=== PATIENT | female | born 1940 ===

== ENCOUNTER 2018-03-14 00:35 | Inpatient (IN) | payer MEDICARE, MEDICAID ==
[2018-03-14 00:40] VITALS: BMI 21.9
[2018-03-14] MEDS ORDERED: Iodixanol 320 MG/ML 100 ML BOTTLE IV ONE ×2 (00:46→01:16)
[2018-03-14] MEDS ORDERED: Sodium Chloride 0.9% 50 ML IV ONE ×2 (00:47→01:17)
[2018-03-14 00:53] LABS: BASO % 0.5 % (0.0-2.0); EOS # 0.2 K/uL (0.0-0.7); EOS % 1.8 % (0.0-4.0); HEMOGLOBIN 14.4 g/dL (12.0-16.0); LYMPH # 1.9 K/uL (1.0-4.3); LYMPH % 19.4 % (20.0-40.0); MEAN CELL VOLUME 94.1 fl (81.0-99.0); MEAN CORPUSCULAR HEMOGLOBIN 31.7 pg (27.0-31.0); MEAN CORPUSCULAR HGB CONC 33.7 g/dL (33.0-37.0); MEAN PLATELET VOLUME 8.8 fl (7.2-11.7); MONO # 0.6 K/uL (0.0-0.8); MONO % 6.1 % (0.0-10.0); NEUT % 72.2 % (50.0-75.0); NRBC % 0.1 % (0.0-0.0); RBC 4.55 Mil/uL (3.80-5.20); RED CELL DISTRIBUTION WIDTH 12.9 % (11.5-14.5); WHITE BLOOD COUNT 9.7 K/uL (4.8-10.8)
[2018-03-14 01:01] LABS: ALB/GLOB RATIO 1.2 (1.0-2.1); CALCIUM 9.6 mg/dL (8.4-10.2)
[2018-03-14 01:04] LABS: PARTIAL THROMBOPLASTIN TIME 30.9 Seconds (25.6-37.1); PROTHROMBIN TIME 10.8 Seconds (9.8-13.1)
[2018-03-14 01:15] LABS: TROPONIN I 0.019 ng/mL (0.00-0.120)
--- NOTE | 2018-03-14 01:19 | ED PDOC ---
HPI: Chest Pain Time Seen by Provider: 03/14/18 00:37 Chief Complaint (Nursing): Weakness/Neurological Deficit Chief Complaint (Provider): chest pain History Per: Patient History/Exam Limitations: no limitations Onset/Duration Of Symptoms: Hrs Current Symptoms Are (Timing): Still Present Additional Complaint(s): HX of carotid stenosis, Parkinson's presenting with chest pain, started at rest around 7PM and spontaneously resolved, occurred again at 1130PM and radiated to the L shoulder, son denies that she was complaining of shorthess of breath, back pain, but states she was breaking out into a sweat and he noticed a L sided facial droop that she once had previously. Patient denies numbness, weakness. Of note, patient has paralysis of her LE from Parkinsons. NIHSS Stroke Scale - Date/Time Evaluation Performed When Was NIHSS Performed: Baseline - How Severe is the Stroke Level of Consciousness: 0=Alert LOC to Questions: 0=Both comments correct LOC to commands: 0=Obeys both correctly Best Gaze: 0=Normal Visual: 0=No visual loss Facial: 1=Minor asymmetry Motor Arm - Left: 0=No drift Motor Arm - Right: 0=No drift Motor Leg - Left: 0=No drift Motor Leg - Right: 0=No drift Limb Ataxia: 0=Absent Sensory: 0=Normal Best Language: 0=No aphasia Dysarthia: 0=Normal articulation Extinction & Inattention (Neglect): 0=Normal, no object Score: 1 Past Medical History Reviewed: Historical Data, Nursing Documentation, Vital Signs Vital Signs: Last Vital Signs Temp 97.9 F 03/14/18 04:43 Pulse 81 03/14/18 04:43 Resp 18 03/14/18 04:43 BP 147/74 03/14/18 04:43 Pulse Ox 98 03/14/18 05:39 - Medical History PMH: Anxiety, Arthritis, HTN, Hypercholesterolemia, Parkinson's Disease Denies: Chronic Kidney Disease - Surgical History Surgical History: Carotid Endarterectomy - Family History Family History: States: Unknown Family Hx - Immunization History Hx Tetanus Toxoid Vaccination: (UTD) - Home Medications Home Medications: Ambulatory Orders Medication Instructions Recorded Carbidopa/Levodopa 25/100 CR 1 tab PO QID 09/13/16 [Sinemet CR] Losartan/Hydrochlorothiazide 1 tab PO DAILY 09/13/16 [Hyzaar 100-25 Tablet] Rotigotine [Neupro] 1 patch TD DAILY 09/13/16 amLODIPine [Norvasc] 2.5 mg PO BID 09/13/16 clonazePAM [Klonopin] 0.5 mg PO DAILY 09/13/16 Amantadine [Amantadine HCl] 100 mg PO DAILY 03/14/18 - Allergies Allergies/Adverse Reactions: Allergies Allergy/AdvReac Type Severity Reaction Status Date / Time Penicillins Allergy SWELLING Verified 07/20/16 15:55 Review of Systems ROS Statement: Except As Marked, All Systems Reviewed And Found Negative Cardiovascular: Positive for: Chest Pain Musculoskeletal: Positive for: Arm Pain Neurological: Negative for: Weakness, Numbness Physical Exam - Reviewed Nursing Documentation Reviewed: Yes Vital Signs Reviewed: Yes - Physical Exam Appears: Positive for: Well, Non-toxic, No Acute Distress Head Exam: Positive for: ATRAUMATIC, NORMAL INSPECTION, NORMOCEPHALIC Skin: Positive for: Normal Color, Warm, DRY Eye Exam: Positive for: EOMI, Normal appearance, PERRL ENT: Positive for: Normal ENT Inspection Neck: Positive for: Normal, Painless ROM Cardiovascular/Chest: Positive for: Regular Rate, Rhythm Respiratory: Positive for: CNT, Normal Breath Sounds Gastrointestinal/Abdominal: Positive for: Normal Exam, Soft Back: Positive for: Normal Inspection Extremity: Positive for: Normal ROM. 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 Negative for: Motor/Sensory Deficits (3/4 bilateral lower extremeties (chronic)), Gait, Aphasia - Laboratory Results Result Diagrams: 03/14/18 00:50 03/14/18 00:50 - ECG O2 Sat by Pulse Oximetry: 98 - Core Measure Core Measure Indicators: Code Stroke - Critical Care Total Time (In Min): 60 Documented Critical Care: Time excludes all time spent performint seperately billable procedures Medical Decision Making Medical Decision MakinAM A/P: Hx of carotid stenosis and Alzheimer's presenting with chest pain, L arm pain, and possible facial droop -patient was immediately taken to CT scanner due to possibility of CVA and EMS reporting of numbness, however patient denied this later -initially patient had tachy-dysrhythmia but resolved spontaneously 130AM -patient now has no complaints, L facial droop has improved from prior, but possible that it is also patient's baseline -no other focal deficits at this time -passed swallow eval, will give ASA pending normal CT/CTA's 330AM -patient well appearing, pleasant, smiling, calm, states no pain, no complaints -CT's negative other than carotid stenosis which is already known -will place in telemetry for continous cardiac monitoring, serial troponins, and mri -likely facial droop is secondary to parkinsonian facies and not true stroke symptom Disposition - Clinical Impression Clinical Impression: Facial droop, Chest pain - Disposition Disposition Time: 01:30 Condition: STABLE
[2018-03-14] MEDS: Sodium Chloride 0.9% 1,000 ML IV SCH ×2 (01:45→17:31)
--- NOTE | 2018-03-14 03:33 | CT ---
EXAM: CT Angiography Head With Intravenous Contrast CLINICAL HISTORY: 77 years old, female; Signs and symptoms; Numbness; Additional info: L sided numbness TECHNIQUE: Axial computed tomographic angiography images of the head with intravenous contrast using CT angiography protocol. All CT scans at this facility use one or more dose reduction techniques, viz.: automated exposure control; ma/kV adjustment per patient size (including targeted exams where dose is matched to indication; i.e. head); or iterative reconstruction technique. MIP reconstructed images were created and reviewed. Coronal and sagittal reformatted images were created and reviewed. CONTRAST: 100 mL of visipaque 320 administered intravenously. COMPARISON: No relevant prior studies available. FINDINGS: The basilar artery is patent. The posterior cerebral arteries are patent. Calcifications within the cavernous internal carotid arteries are noted. No significant stenosis or occlusion of the intracranial internal carotid arteries. The anterior and middle cerebral arteries are patent. No significant fluid within the sinuses or mastoid air cells. IMPRESSION: No vascular occlusion or aneurysm. EXAM: CT Angiography Neck With Intravenous Contrast EXAM DATE/TIME: 03/14/2018 12:55 AM CLINICAL HISTORY: 77 years old, female; Signs and symptoms; Numbness; Additional info: L sided numbness TECHNIQUE: Axial computed tomographic angiography images of the neck with intravenous contrast using CT angiography protocol. All CT scans at this facility use one or more dose reduction techniques, viz.: automated exposure control; ma/kV adjustment per patient size (including targeted exams where dose is matched to indication; i.e. head); or iterative reconstruction technique. MIP reconstructed images were created and reviewed. Coronal and sagittal reformatted images were created and reviewed. CONTRAST: 100 mL of visipaque 320 administered intravenously. COMPARISON: CTA HEAD/NECK CODE STROKE 2018-03-14 00:43 FINDINGS: There are atherosclerotic calcifications within the aorta and at the origins of the great vessels. There is dense calcification of the origin of the left vertebral artery. The left vertebral artery is patent distal to the bulky calcification.The left vertebral artery terminates in the left posterior inferior cerebral artery, a normal variant. The right vertebral artery is dominant. The basilar artery is patent Calcifications are present within the proximal-mid common carotid arteries bilaterally without significant stenosis or occlusion. Dense calcification is present at the bifurcation of the right common carotid artery and extending into the proximal right internal carotid artery where it results in moderate-severe stenosis. The right internal carotid artery is well-perfused distal to this region. The left internal carotid artery is patent without significant stenosis or occlusion. Degenerative changes are present with osteophyte formation and articular facet joint hypertrophy. Minimal 2 mm anterior listhesis C4 with respect C5 felt to be chronic. Punctate areas of low attenuation within the thyroid gland. Recommend correlation with laboratory values. IMPRESSION: Bulky atherosclerotic calcifications at the right common carotid artery bifurcation extending into the origin of the internal carotid artery resulting in a focal area of moderate - severe stenosis with good perfusion distally.
[2018-03-14 07:28] LABS: HEMOGLOBIN 13.9 g/dL (12.0-16.0); MEAN CELL VOLUME 93.1 fl (81.0-99.0); MEAN CORPUSCULAR HEMOGLOBIN 31.7 pg (27.0-31.0); MEAN CORPUSCULAR HGB CONC 34.1 g/dL (33.0-37.0); RBC 4.39 Mil/uL (3.80-5.20); WHITE BLOOD COUNT 8.6 K/uL (4.8-10.8)
[2018-03-14 07:44] LABS: ALB/GLOB RATIO 1.2 (1.0-2.1); ALBUMIN 3.9 g/dL (3.5-5.0); ALT/SGPT 15 U/L (9-52); AST/SGOT 22 U/L (14-36); BLOOD UREA NITROGEN 18 mg/dl (7-17); CALCIUM 9.3 mg/dL (8.4-10.2); GFR AFRICAN-AMERICAN > 60; GFR NON-AFRICAN AMERICAN > 60
--- NOTE | 2018-03-14 08:40 | CT ---
PROCEDURE: CT HEAD WITHOUT CONTRAST. HISTORY: code stroke COMPARISON: Comparison is made with the previous study dated 09/13/2016 TECHNIQUE: Axial computed tomography images were obtained through the head/brain without intravenous contrast. Radiation dose: Total exam DLP = 763.89 mGy-cm. This CT exam was performed using one or more of the following dose reduction techniques: Automated exposure control, adjustment of the mA and/or kV according to patient size, and/or use of iterative reconstruction technique. FINDINGS: HEMORRHAGE: No intracranial hemorrhage. BRAIN: No mass effect or edema. Mild volume loss and mild chronic microvascular white matter ischemic changes are again noted. VENTRICLES: Unremarkable. No hydrocephalus. CALVARIUM: Unremarkable. PARANASAL SINUSES: Unremarkable as visualized. No significant inflammatory changes. MASTOID AIR CELLS: Unremarkable as visualized. No inflammatory changes. OTHER FINDINGS: None. IMPRESSION: No evidence of acute intracranial hemorrhage territorial infarct mass effect or midline shift. Mild volume loss and chronic microvascular ischemic disease again noted.
[2018-03-14] MEDS: Carbidopa/Levodopa 25/100 CR PO SCH ×4 (08:42→21:16)
--- NOTE | 2018-03-14 09:56 | MRI ---
PROCEDURE: MRI BRAIN WITHOUT CONTRAST HISTORY: R/O CVA COMPARISON: Comparison is made with the previous CTA dated 03/14/2018 TECHNIQUE: Multiplanar, multisequence MR images of the brain were obtained without intravenous contrast enhancement. FINDINGS: HEMORRHAGE: None DWI: No evidence of an acute or early subacute infarction. BRAIN PARENCHYMA: No mass effect or edema. Gzqy-ds-aqjfqgbl atrophy is noted. Nekl-yu-ktqwjpcz white matter changes are also noted VENTRICLES: Unremarkable. No hydrocephalus. CRANIUM: Unremarkable. ORBITS: Grossly unremarkable. PARANASAL SINUSES/MASTOIDS: Clear VASCULAR SYSTEM: Skull base flow voids intact. OTHER FINDINGS: None. IMPRESSION: No evidence of acute or subacute infarction. No evidence of intracranial hemorrhage mass effect or midline shift. Esbx-cy-nglbcurd atrophy and chronic microvascular white matter ischemic disease.
--- NOTE | 2018-03-14 11:10 | CARD ---
APPROVED REPORT EXAM: Two-dimensional and M-mode echocardiogram with Doppler and color Doppler. Other Information Quality : GoodRhythm : NSR INDICATION Chest Pain 2D DIMENSIONS IVSd0.88 (0.7-1.1cm)LVDd3.91 (3.9-5.9cm) LVOT Diameter1.39 (1.8-2.4cm)PWd0.84 (0.7-1.1cm) IVSs1.28 (0.8-1.2cm)LVDs2.11 (2.5-4.0cm) FS (%) 46.1 %PWs0.94 (0.8-1.2cm) M-Mode DIMENSIONS Left Atrium (MM)4.00 (2.5-4.0cm)IVSd1.38 (0.7-1.1cm) Aortic Root2.62 (2.2-3.7cm)LVDd2.98 (4.0-5.6cm) Aortic Cusp Exc.1.63 (1.5-2.0cm)PWd1.24 (0.7-1.1cm) IVSs1.52 cmFS (%) 46 % LVDs1.60 (2.0-3.8cm)PWs1.68 cm Mitral Valve MV E Twyowlnt85.6cm/sMV DECEL [id number] A Zvgbxpjb73.0cm/s MV ZYF83fbL/A ratio0.8MVA (PHT)3.36cm2 TDI Lateral E' Peak V5.87cm/sMedial E' Peak V7.01cm/sE/Lateral E'12.7 E/Medial E'10.6 Pulmonary Valve PV Peak Blzzstus147.5cm/s Tricuspid Valve TR Peak [id number]/sRAP [id number] Peak Gr.25mmHg [id number] LEFT VENTRICLE The left ventricle is normal in size. There is normal left ventricular wall thickness. The left ventricular function is normal. The left ventricular ejection fraction is - 75%. There is normal LV segmental wall motion. Transmitral Doppler flow pattern is Grade I-abnormal relaxation pattern. No left ventricle thrombus noted on this study. There is no ventricular septal defect visualized. There is no left ventricular aneurysm. There is no mass noted in the left ventricle. RIGHT VENTRICLE The right ventricle is normal size. There is normal right ventricular wall thickness. The right ventricular systolic function is normal. ATRIA The left atrium is mildly dilated on the 2D study. There is no thrombus suspected in the left atrium. The right atrium size is normal. The interatrial septum is intact with no evidence for an atrial septal defect. AORTIC VALVE The aortic valve is normal in structure. No aortic regurgitation is present. There is no aortic valvular stenosis. There is no aortic valvular vegetation. MITRAL VALVE The mitral valve is normal in structure. There is no evidence of mitral valve prolapse. There is no mitral valve stenosis. Mitral regurgitation is trace. TRICUSPID VALVE The tricuspid valve is normal in structure. There is mild tricuspid regurgitation. Right ventricular systolic pressure is estimated at 34 mmHg. There is no tricuspid valve prolapse or vegetation. There is no tricuspid valve stenosis. PULMONIC VALVE The pulmonary valve is normal in structure. There is no pulmonic valvular regurgitation. GREAT VESSELS The aortic root is normal in size. The IVC is normal in size and collapses >50% with inspiration. PERICARDIAL EFFUSION The pericardium appears normal. There is no pleural effusion. <Conclusion> The left ventricle is normal in size and wall thickness. The left ventricular function is normal. The left ventricular ejection fraction is - 75%. The left atrium is mildly dilated on the 2D study. The mitral, aortic and tricuspid valves are normal. There is trace mitral regurgitation and mild tricuspid regurgitation.
--- NOTE | 2018-03-14 11:10 | CP.PCM.HP ---
History of Present Illness - History of Present Illness History of Present Illness: pt admitted for left facial droop and cp. all bw and imaging noted. atherosclerosis noted. pos trop noted. no cp at present. no neuromuscular weakness. + facial droop noted on exam. speech wnl for this pt. Present on Admission - Present on Admission Any Indicators Present on Admission: No Review of Systems - Cardiovascular Cardiovascular: As Per HPI, Chest Pain - Neurological Neurological: As Per HPI, Weakness Past Patient History - Past Medical History & Family History Past Medical History?: Yes - Past Social History Smoking Status: Never Smoked - CARDIAC Hx Hypercholesterolemia: Yes Hx Hypertension: Yes - PULMONARY Hx Respiratory Disorders: No - NEUROLOGICAL Hx Parkinson's Disease: Yes - HEENT Hx HEENT Problems: No - RENAL Hx Chronic Kidney Disease: No - ENDOCRINE/METABOLIC Hx Endocrine Disorders: No - HEMATOLOGICAL/ONCOLOGICAL Hx Blood Disorders: No - INTEGUMENTARY Hx Dermatological Problems: No - MUSCULOSKELETAL/RHEUMATOLOGICAL Hx Arthritis: Yes - GASTROINTESTINAL Hx Gastrointestinal Disorders: No - GENITOURINARY/GYNECOLOGICAL Hx Genitourinary Disorders: No - PSYCHIATRIC Hx Anxiety: Yes - SURGICAL HISTORY Hx Carotid Endarterectomy: Yes - ANESTHESIA Hx Anesthesia: Yes Hx Anesthesia Reactions: No Hx Malignant Hyperthermia: No Meds Allergies/Adverse Reactions: Allergies Allergy/AdvReac Type Severity Reaction Status Date / Time Penicillins Allergy SWELLING Verified 07/20/16 15:55 Physical Exam - Constitutional Appears: Well, Non-toxic, No Acute Distress, Chronically Ill - Head Exam Head Exam: ATRAUMATIC, NORMAL INSPECTION, NORMOCEPHALIC - Eye Exam Eye Exam: EOMI, Normal appearance, PERRL Pupil Exam: NORMAL ACCOMODATION, PERRL - ENT Exam ENT Exam: Mucous Membranes Moist, Normal Exam - Neck Exam Neck exam: Positive for: Normal Inspection - Respiratory Exam Respiratory Exam: Clear to Auscultation Bilateral, NORMAL BREATHING PATTERN - Cardiovascular Exam Cardiovascular Exam: REGULAR RHYTHM, RRR, +S1, +S2 - GI/Abdominal Exam GI & Abdominal Exam: Normal Bowel Sounds, Soft. absent: Tenderness - Extremities Exam Extremities exam: Positive for: full ROM, normal capillary refill, normal inspection, pedal pulses present - Back Exam Back exam: NORMAL INSPECTION - Neurological Exam Neurological exam: Abnormal Gait, Alert, CN II-XII Intact, Oriented x3, Reflexes Normal - Psychiatric Exam Psychiatric exam: Normal Affect, Normal Mood - Skin Skin Exam: Dry, Intact, Normal Color, Warm Results - Vital Signs Recent Vital Signs: Last Vital Signs Temp 97.3 F L 03/14/18 08:02 Pulse 78 03/14/18 08:41 Resp 18 03/14/18 08:02 BP 147/77 03/14/18 08:41 Pulse Ox 100 03/14/18 08:02 - Labs Result Diagrams: 03/14/18 06:04 03/14/18 06:04 Labs: Laboratory Results - last 24 hr 03/14/18 03/14/18 03/14/18 00:42 00:50 00:50 WBC 9.7 RBC 4.55 Hgb 14.4 Hct 42.8 MCV 94.1 MCH 31.7 H MCHC 33.7 RDW 12.9 Plt Count 224 MPV 8.8 Neut % (Auto) 72.2 Lymph % (Auto) 19.4 L Crisp % (Auto) 6.1 Eos % (Auto) 1.8 Baso % (Auto) 0.5 Neut # (Auto) 7.0 Lymph # (Auto) 1.9 Crisp # (Auto) 0.6 Eos # (Auto) 0.2 Baso # (Auto) 0.0 PT INR APTT Sodium 141 Potassium 3.9 Chloride 105 Carbon Dioxide 21 L Anion Gap 19 BUN 21 H Creatinine 1.1 Est GFR ( Amer) 59 Est GFR (Non-Af Amer) 48 Random Glucose 177 H Calcium 9.6 Total Bilirubin 0.6 AST 18 ALT 16 Alkaline Phosphatase 95 Troponin I 0.0190 Total Protein 7.3 Albumin 4.0 Globulin 3.3 Albumin/Globulin Ratio 1.2 Triglycerides 139 Cholesterol 204 H LDL Cholesterol Direct 126 HDL Cholesterol 47 Blood Type A POSITIVE Antibody Screen Negative BBK History Checked Patient has bt 03/14/18 03/14/18 03/14/18 00:50 06:04 06:04 WBC 8.6 RBC 4.39 Hgb 13.9 Hct 40.9 MCV 93.1 MCH 31.7 H MCHC 34.1 RDW 13.0 Plt Count 197 MPV Neut % (Auto) Lymph % (Auto) Crisp % (Auto) Eos % (Auto) Baso % (Auto) Neut # (Auto) Lymph # (Auto) Crisp # (Auto) Eos # (Auto) Baso # (Auto) PT 10.8 INR 1.0 APTT 30.9 Sodium 144 Potassium 4.3 Chloride 108 H Carbon Dioxide 24 Anion Gap 16 BUN 18 H Creatinine 0.7 Est GFR ( Amer) > 60 Est GFR (Non-Af Amer) > 60 Random Glucose 103 Calcium 9.3 Total Bilirubin 0.5 AST 22 ALT 15 Alkaline Phosphatase 89 Troponin I 0.2820 H* Total Protein 7.2 Albumin 3.9 Globulin 3.3 Albumin/Globulin Ratio 1.2 Triglycerides Cholesterol LDL Cholesterol Direct HDL Cholesterol Blood Type Antibody Screen BBK History Checked Assessment & Plan (1) DVT prophylaxis Assessment and Plan: scd and ae hose asa. hold anticoag until intervention r/o Status: Acute (2) Chest pain Assessment and Plan: trops, asa echo Status: Acute (3) Facial droop Assessment and Plan: ct head/cta head/neck noted. mri brain noted carotid dopplar pending neuro consult-case d/c w/ dr hernández. recommends bp 160-170 (dr gallegos aware of same as pt also appears to have acs process) asa ordered. will follow w/ dr hernández for possible intervention Status: Acute Decision To Admit - Pt Status Changed To: Hospital Disposition Of: Inpatient - Admit Certification Admit to Inpatient:: After my assessment, the patient will require hospitalization for at least two midnights. This is because of the severity of symptoms shown, intensity of services needed, and/or the medical risk in this patient being treated as an outpatient. - . Bed Request Type: Telemetry Admitting Physician: Yumiko Joseph
--- NOTE | 2018-03-14 11:30 | CP.PCM.CON ---
History of Present Illness - History of Present Illness History of Present Illness: I was asked to evaluate patient by Dr Razo and Dr Joseph Patient is a 77 year old female with PMH HTN, DM, Parkinson's carotid stenosis who presents with chest pain. The patient developed intermittent chest pressure while at rest, and radiation to the left arm. She was dyspneic at rest. The son also notes a facial droop. consultation was requested. Of note patient had a short run of SVT last night Review of Systems - Constitutional Constitutional: absent: As Per HPI, Anorexia, Chills, Daytime Sleepiness, Excessive Sweating, Fatigue, Fever, Frequent Falls, Headache, Increased Appetite , Lethargy, Malaise, Night Sweats, Snoring, Sleep Apnea, Weight Gain, Weight Loss, Weakness, Other - EENT Ears: absent: As Per HPI, Decreased Hearing, Ear Discharge, Ear Pain, Tinnitus, Abnormal Hearing, Disequilibrium, Dizziness, Other Nose/Mouth/Throat: absent: As Per HPI, Epistaxis, Nasal Congestion, Nasal Discharge, Nasal Obstruction, Nasal Trauma, Nose Pain, Post Nasal Drip, Sinus Pain, Sinus Pressure, Bleeding Gums, Change in Voice, Dental Pain, Dry Mouth, Dysphagia, Halitosis, Hoarsness, Lip Swelling, Mouth Lesions, Mouth Pain, Odynophagia, Sore Throat, Throat Swelling, Tongue Swelling, Facial Pain, Neck Pain, Neck Mass, Other - Cardiovascular Cardiovascular: Chest Pain - Respiratory Respiratory: absent: As Per HPI, Cough, Dyspnea, Hemoptysis, Dyspnea on Exertion , Wheezing, Snoring, Stridor, Pain on Inspiration, Chest Congestion, Excessive Mucous Production, Change in Mucous Color, Pain with Coughing, Other - Gastrointestinal Gastrointestinal: absent: As Per HPI, Abdominal Pain, Belching, Bloating, Change in Bowel Habits, Change in Stool Character, Coffee Ground Emesis, Constipation, Cramping, Diarrhea, Dyspepsia, Dysphagia, Early Satiety, Excessive Flatus, Fecal Incontinence, Heartburn, Hematemesis, Hematochezia, Loose Stools, Melena, Nausea, Odynophagia, Temesmus, Vomiting, Other - Genitourinary Genitourinary: absent: As Per HPI, Change in Urinary Stream, Difficulty Urinating, Dysuria, Flank Pain, Hematuria, Pyuria, Nocturia, Urinary Incontinence, Urinary Frequency, Urinary Hesitance, Urinary Urgency, Voiding Freq/Small Amts, Freq UTI, Hx Renal/Bladder Calculi, Hx /Renal Surgery, Bladder Distension, Other - Musculoskeletal Musculoskeletal: absent: As Per HPI, Abnormal Gait, Arthralgias, Atrophy, Back Pain, Deformity, Joint Swelling, Limited Range of Motion, Loss of Height, Muscle Cramps, Muscle Weakness, Myalgias, Neck Pain, Numbness, Radiating Pain into Limb, Stiffness, Tingling, Other - Integumentary Integumentary: absent: As Per HPI, Acne, Alopecia, Bleeding Lesions, Change in Hair, Change in Nails, Change in Pigmentation, Changing Lesions, Dry Skin, Erythema, Furuncle, Hirsutism, Lesions, New Lesions, Non-Healing Lesions, Photosensitivity, Pruritus, Rash, Skin Pain, Skin Ulcer, Sores, Striae, Swelling , Unusual Bruising, Wounds, Jaundice, Other - Neurological Neurological: Focal Weakness - Psychiatric Psychiatric: absent: As Per HPI, Abnormal Sleep Pattern, Anhedonia, Anxiety, Auditory Hallucinations, Behavioral Changes, Change in Appetite, Change in Libido, Confusion, Depression, Difficulty Concentrating, Hallucinations, Homicidal Ideation, Hopelessness, Irritability, Memory Loss, Mood Swings, Panic Attacks, Paranoia, Suicidal Ideation, Visual Hallucinations, Tactile Hallucinations, Other - Endocrine Endocrine: absent: As Per HPI, Change in Body Appearance, Change in Libido, Cold Intolorance, Deepening of Voice, Excessive Sweating, Fatigue, Flushing, Heat Intolorance, Increase in Ring/Shoe/Hat Size, Palpitations, Polydipsia, Polyphagia, Polyuria, Other - Hematologic/Lymphatic Hematologic: absent: As Per HPI, Easy Bleeding, Easy Bruising, Lymphadenopathy, Other Past Patient History - Past Medical History & Family History Past Medical History?: Yes - Past Social History Smoking Status: Never Smoked - CARDIAC Hx Hypercholesterolemia: Yes Hx Hypertension: Yes - PULMONARY Hx Respiratory Disorders: No - NEUROLOGICAL Hx Parkinson's Disease: Yes - HEENT Hx HEENT Problems: No - RENAL Hx Chronic Kidney Disease: No - ENDOCRINE/METABOLIC Hx Endocrine Disorders: No - HEMATOLOGICAL/ONCOLOGICAL Hx Blood Disorders: No - INTEGUMENTARY Hx Dermatological Problems: No - MUSCULOSKELETAL/RHEUMATOLOGICAL Hx Arthritis: Yes - GASTROINTESTINAL Hx Gastrointestinal Disorders: No - GENITOURINARY/GYNECOLOGICAL Hx Genitourinary Disorders: No - PSYCHIATRIC Hx Anxiety: Yes - SURGICAL HISTORY Hx Carotid Endarterectomy: Yes - ANESTHESIA Hx Anesthesia: Yes Hx Anesthesia Reactions: No Hx Malignant Hyperthermia: No Meds Allergies/Adverse Reactions: Allergies Allergy/AdvReac Type Severity Reaction Status Date / Time Penicillins Allergy SWELLING Verified 07/20/16 15:55 - Medications Medications: Current Medications Amantadine HCl (Amantadine 100 Mg Cap) 100 mg PO DAILY [facility] Last Admin: 03/14/18 08:40 Dose: 100 mg Amlodipine Besylate (Norvasc) 2.5 mg PO BID [facility] Last Admin: 03/14/18 08:41 Dose: 2.5 mg Aspirin (Ecotrin) 81 mg PO DAILY [facility] Last Admin: 03/14/18 08:44 Dose: 81 mg Carbidopa/Levodopa (Sinemet Cr) 1 tab PO QID [facility] Last Admin: 03/14/18 08:42 Dose: 1 tab Clonazepam (Klonopin) 0.5 mg PO DAILY [facility] Last Admin: 03/14/18 08:44 Dose: 0.5 mg Home Med (Rotigotine [Neupro]) 1 patch TD DAILY [facility] Hydrochlorothiazide (Hydrodiuril) 25 mg PO DAILY [facility] Last Admin: 03/14/18 08:41 Dose: 25 mg Sodium Chloride (Sodium Chloride 0.9%) 1,000 mls @ 100 mls/hr IV .Q10H [facility] Last Admin: 03/14/18 01:45 Dose: 100 mls/hr Losartan Potassium (Cozaar) 100 mg PO DAILY [facility] Last Admin: 03/14/18 08:40 Dose: 100 mg Physical Exam - Constitutional Appears: Non-toxic - Head Exam Head Exam: NORMAL INSPECTION - Eye Exam Eye Exam: Normal appearance - ENT Exam ENT Exam: Mucous Membranes Moist - Neck Exam Neck exam: Positive for: Full Rom - Respiratory Exam Respiratory Exam: Decreased Breath Sounds - Cardiovascular Exam Cardiovascular Exam: REGULAR RHYTHM - GI/Abdominal Exam GI & Abdominal Exam: Normal Bowel Sounds - Rectal Exam Rectal Exam: Deferred - Extremities Exam Extremities exam: Positive for: pedal edema - Back Exam Back exam: NORMAL INSPECTION - Neurological Exam Neurological exam: Alert - Psychiatric Exam Psychiatric exam: Normal Affect - Skin Skin Exam: Normal Color Results - Vital Signs Recent Vital Signs: Last Vital Signs Temp 97.3 F L 03/14/18 08:02 Pulse 78 03/14/18 09:00 Resp 18 06/02/18 08:02 BP 147/77 03/14/18 08:41 Pulse Ox 100 03/14/18 08:02 - Labs Result Diagrams: 03/14/18 06:04 03/14/18 06:04 Labs: Laboratory Results - last 24 hr 03/14/18 03/14/18 03/14/18 00:42 00:50 00:50 WBC 9.7 RBC 4.55 Hgb 14.4 Hct 42.8 MCV 94.1 MCH 31.7 H MCHC 33.7 RDW 12.9 Plt Count 224 MPV 8.8 Neut % (Auto) 72.2 Lymph % (Auto) 19.4 L Anson % (Auto) 6.1 Eos % (Auto) 1.8 Baso % (Auto) 0.5 Neut # (Auto) 7.0 Lymph # (Auto) 1.9 Anson # (Auto) 0.6 Eos # (Auto) 0.2 Baso # (Auto) 0.0 PT INR APTT Sodium 141 Potassium 3.9 Chloride 105 Carbon Dioxide 21 L Anion Gap 19 BUN 21 H Creatinine 1.1 Est GFR ( Amer) 59 Est GFR (Non-Af Amer) 48 Random Glucose 177 H Calcium 9.6 Total Bilirubin 0.6 AST 18 ALT 16 Alkaline Phosphatase 95 Troponin I 0.0190 Total Protein 7.3 Albumin 4.0 Globulin 3.3 Albumin/Globulin Ratio 1.2 Triglycerides 139 Cholesterol 204 H LDL Cholesterol Direct 126 HDL Cholesterol 47 Blood Type A POSITIVE Antibody Screen Negative BBK History Checked Patient has bt 03/14/18 03/14/18 03/14/18 00:50 06:04 06:04 WBC 8.6 RBC 4.39 Hgb 13.9 Hct 40.9 MCV 93.1 MCH 31.7 H MCHC 34.1 RDW 13.0 Plt Count 197 MPV Neut % (Auto) Lymph % (Auto) Anson % (Auto) Eos % (Auto) Baso % (Auto) Neut # (Auto) Lymph # (Auto) Anson # (Auto) Eos # (Auto) Baso # (Auto) PT 10.8 INR 1.0 APTT 30.9 Sodium 144 Potassium 4.3 Chloride 108 H Carbon Dioxide 24 Anion Gap 16 BUN 18 H Creatinine 0.7 Est GFR ( Amer) > 60 Est GFR (Non-Af Amer) > 60 Random Glucose 103 Calcium 9.3 Total Bilirubin 0.5 AST 22 ALT 15 Alkaline Phosphatase 89 Troponin I 0.2820 H* Total Protein 7.2 Albumin 3.9 Globulin 3.3 Albumin/Globulin Ratio 1.2 Triglycerides Cholesterol LDL Cholesterol Direct HDL Cholesterol Blood Type Antibody Screen BBK History Checked - EKG Data EKG Interpreted by: Myself EKG shows normal: Sinus rhythm Assessment & Plan (1) SVT (supraventricular tachycardia) Assessment and Plan: recommend betablocker therapy Status: Acute (2) NSTEMI (non-ST elevated myocardial infarction) Assessment and Plan: likely due to ubnderlying CAD. recommend echocardiogram to assess LV function. recommend addition of Plavix. would anticoagulate if cleared by neuro Status: Acute (3) Chest pain Status: Acute
[2018-03-14] MEDS: ROTIGOTINE TD SCH (13:31)
--- NOTE | 2018-03-14 16:40 | CARD ---
APPROVED REPORT EKG Measurement Heart [id number] <Conclusion> Normal sinus rhythm Left ventricular hypertrophy with QRS widening and repolarization abnormality Cannot rule out Septal infarct, age undetermined Abnormal ECG
--- NOTE | 2018-03-14 16:46 | RAD ---
HISTORY: Code Stroke COMPARISON: Comparison is made with 09/13/2016 FINDINGS: LUNGS: No active pulmonary disease. PLEURA: No significant pleural effusion identified, no pneumothorax apparent. CARDIOVASCULAR: Normal. OSSEOUS STRUCTURES: No significant abnormalities. VISUALIZED UPPER ABDOMEN: Normal. OTHER FINDINGS: None. IMPRESSION: No active disease.
--- NOTE | 2018-03-14 17:14 | US ---
PROCEDURE: Duplex ultrasound of the carotid and vertebral arteries. HISTORY: R/O CVA COMPARISON: Comparison is made with the previous CTA dated 03/14/2028 TECHNIQUE: Grayscale and duplex Doppler evaluation of the cervical carotid and vertebral arteries were performed. The common carotid, carotid bifurcations and cervical ICA and proximal ECA were evaluated. The vertebral arteries were evaluated for gross patency and direction. FINDINGS: RIGHT CAROTID ARTERIES: Common Carotid Artery: Calcified plaques noted Maximal flow velocity of 55.2 cm/s. Carotid Bifurcation: Large calcified plaques. Internal Carotid Artery:Foci of calcified and noncalcified plaques noted. Maximal flow velocity of 120 cm/s. External Carotid Artery (proximal branches): Normal. Maximal flow velocity of 118.7 cm/s. ICA/CCA Ratio: 2.4 LEFT CAROTID ARTERIES: Common Carotid Artery: Calcified plaques noted. Maximal flow velocity of 80 cm/s. Carotid Bifurcation: Large calcified plaques noted. Internal Carotid Artery:Mural thickening and foci of calcified and noncalcified plaques. Maximal flow velocity of 70.7 cm/s. External Carotid Artery (proximal branches): Normal Maximal flow velocity of 115.5 cm/s. ICA/CCA Ratio: 0.9 VERTEBRAL ARTERIES: Right Vertebral Artery: Patent. Antegrade flow. Left Vertebral Artery: Patent. Antegrade flow. OTHER FINDINGS: None. IMPRESSION: Mild increased peak systolic velocity at the proximal right internal carotid artery and carotid bifurcation suggestive of mild approximately 50 percent stenosis. Moderate atherosclerotic disease noted bilaterally.
[2018-03-15 06:04] LABS: BASO % 0.7 % (0.0-2.0); EOS # 0.1 K/uL (0.0-0.7); HEMOGLOBIN 14.5 g/dL (12.0-16.0); LYMPH % 29.4 % (20.0-40.0); MEAN CELL VOLUME 94.2 fl (81.0-99.0); MEAN CORPUSCULAR HEMOGLOBIN 31.6 pg (27.0-31.0); MEAN CORPUSCULAR HGB CONC 33.5 g/dL (33.0-37.0); MEAN PLATELET VOLUME 9.1 fl (7.2-11.7); MONO # 0.5 K/uL (0.0-0.8); MONO % 7.3 % (0.0-10.0); NEUT # 4.1 K/uL (1.8-7.0); NEUT % 60.6 % (50.0-75.0); RBC 4.58 Mil/uL (3.80-5.20); RED CELL DISTRIBUTION WIDTH 12.9 % (11.5-14.5); WHITE BLOOD COUNT 6.7 K/uL (4.8-10.8)
[2018-03-15 06:10] LABS: ALB/GLOB RATIO 1.2 (1.0-2.1); ALBUMIN 3.9 g/dL (3.5-5.0); ALT/SGPT 18 U/L (9-52); AST/SGOT 22 U/L (14-36); BLOOD UREA NITROGEN 13 mg/dl (7-17); CALCIUM 9.1 mg/dL (8.4-10.2); GFR AFRICAN-AMERICAN > 60; GFR NON-AFRICAN AMERICAN > 60; HDL CHOLESTEROL 47 MG/DL (30-70)
[2018-03-15 06:14] LABS: LDL CHOLESTEROL 120 mg/dL (0-129)
[2018-03-15] MEDS: Carbidopa/Levodopa 25/100 CR PO SCH ×4 (08:23→21:00)
[2018-03-15] MEDS: ROTIGOTINE TD SCH (09:42)
--- NOTE | 2018-03-15 11:44 | CP.PCM.PN ---
Subjective - Date & Time of Evaluation Date of Evaluation: 03/15/18 Time of Evaluation: 11:44 - Subjective Subjective: pt comfortable in bed, no f/c, n/v/d. no cp, dyspnea. left facial droop remains all imaging and consult notes reviewed. 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 trops noted and case d/c w/ dr gallegos. pt for cath likely tomorrow. Objective - Vital Signs/Intake and Output Vital Signs (last 24 hours): Temp Pulse Resp BP Pulse Ox 97.6 F 86 20 161/75 H 100 03/15/18 08:27 03/15/18 09:00 03/15/18 08:27 03/15/18 08:27 03/15/18 08:27 - Medications Medications: Current Medications Amantadine HCl (Amantadine 100 Mg Cap) 100 mg PO DAILY [facility] Last Admin: 03/15/18 08:22 Dose: 100 mg Amlodipine Besylate (Norvasc) 2.5 mg PO BID [facility] Last Admin: 03/15/18 08:23 Dose: 2.5 mg Aspirin (Ecotrin) 81 mg PO DAILY [facility] Last Admin: 03/15/18 08:22 Dose: 81 mg Carbidopa/Levodopa (Sinemet Cr) 1 tab PO QID [facility] Last Admin: 03/15/18 08:23 Dose: 1 tab Clonazepam (Klonopin) 0.5 mg PO DAILY [facility] Last Admin: 03/15/18 08:27 Dose: 0.5 mg Clopidogrel Bisulfate (Plavix) 75 mg PO DAILY [facility] Last Admin: 03/15/18 08:23 Dose: 75 mg Home Med (Rotigotine [Neupro]) 1 patch TD DAILY [facility] Last Admin: 03/15/18 09:42 Dose: 1 patch Hydrochlorothiazide (Hydrodiuril) 25 mg PO DAILY [facility] Last Admin: 03/15/18 08:22 Dose: 25 mg Sodium Chloride (Sodium Chloride 0.9%) 1,000 mls @ 100 mls/hr IV .Q10H [facility] Last Admin: 03/14/18 17:31 Dose: 100 mls/hr Losartan Potassium (Cozaar) 100 mg PO DAILY [facility] Last Admin: 03/15/18 08:24 Dose: 100 mg - Labs Labs: 03/15/18 04:40 03/15/18 04:40 PT 10.8 Seconds (9.8-13.1) 03/14/18 00:50 INR 1.0 (0.9-1.2) 03/14/18 00:50 APTT 30.9 Seconds (25.6-37.1) 03/14/18 00:50 - Constitutional Appears: Well, Non-toxic, No Acute Distress, Chronically Ill - Head Exam Head Exam: ATRAUMATIC, NORMAL INSPECTION, NORMOCEPHALIC - Eye Exam Eye Exam: EOMI, Normal appearance, PERRL Pupil Exam: NORMAL ACCOMODATION, PERRL - ENT Exam ENT Exam: Mucous Membranes Moist, Normal Exam - Neck Exam Neck Exam: Full ROM, Normal Inspection. absent: Lymphadenopathy - Respiratory Exam Respiratory Exam: Clear to Ausculation Bilateral, NORMAL BREATHING PATTERN - Cardiovascular Exam Cardiovascular Exam: REGULAR RHYTHM, +S1, +S2. absent: Murmur - GI/Abdominal Exam GI & Abdominal Exam: Soft, Normal Bowel Sounds. absent: Tenderness - Exam Bimanual exam: NORMAL BIMANUAL EXAM - Extremities Exam Extremities Exam: Full ROM, Normal Capillary Refill, Normal Inspection. absent : Joint Swelling, Pedal Edema - Back Exam Back Exam: NORMAL INSPECTION - Neurological Exam Neurological Exam: Alert, Awake, CN II-XII Intact, Normal Gait, Oriented x3 - Psychiatric Exam Psychiatric exam: Normal Affect, Normal Mood - Skin Skin Exam: Dry, Intact, Normal Color, Warm Assessment and Plan (1) DVT prophylaxis Status: Acute (2) Chest pain Status: Acute (3) Facial droop Status: Acute - Assessment and Plan (Free Text) Assessment: (1) DVT prophylaxis Assessment and Plan: scd and ae hose asa. hold anticoag until intervention r/o-likely cath tomorrow Status: Acute (2) Chest pain Assessment and Plan: trops, asa echo plavix added, likely for cath cardio to follow Status: Acute (3) Facial droop Assessment and Plan: ct head/cta head/neck noted. mri brain noted carotid dopplar noted neuro consult-case d/c w/ dr hernández. 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 will follow w/ dr hernández for possible intervention-no intervention as per dr hernández Status: Acute
[2018-03-15] MEDS ORDERED: Metoprolol 1 mg/ml Inj IVP ONE ×2 (12:56→13:30)
--- NOTE | 2018-03-15 13:26 | PCM.RRT ---
TECHNOLOGY STRATEGIST Nurse Assessment - Situation TECHNOLOGY STRATEGIST Responder Arrival Time: 13:05 Location: [address] [place] [address] Room Number: 403 bed 1 TECHNOLOGY STRATEGIST Reason for Call: Tachycardia TECHNOLOGY STRATEGIST Called By: RN - IV IV Inserted during TECHNOLOGY STRATEGIST?: No - Respiratory Oxygen Delivery Method: Room Air Received Nebulizer Treatments: No Was the Patient Ventilated with Bag/Mask 100% O2?: No Secretions Suctioned?: No Was the Patient Intubated?: No Was the Patient Placed on a Ventilator?: No - Diagnostic Test Ordered EKG: Yes (SVT) Chest X-Ray: No CT Scan: No - Stat Labs Ordered TECHNOLOGY STRATEGIST Other Labs Ordered: None CPR started during TECHNOLOGY STRATEGIST?: No - Vital Signs Vital Signs: Vital signs: HR: 145/min, BP: 88/63, oxygen sat : 96 %, T : 98.5 I.Reason for TECHNOLOGY STRATEGIST - A) Acute Change in Patient: Subjective: TECHNOLOGY STRATEGIST was called due to recurrent SVT in a 77 year old female with PMHx of HTN, DM , Parkinson's, Carotid stenosis who was admitted for chest pain to r/o ACS, and facial droop. On arrival patient was awake, and alert. Denies chest pain, SOB, dizziness. - Neurological Status (Select all that apply): Alert - Respiratory Oxygen Delivery Method: Room Air - Constitutional Appears: Non-toxic, No Acute Distress - Head Head Exam: ATRAUMATIC, NORMOCEPHALIC - Eyes Eye Exam: Normal appearance - Respiratory Exam Respiratory Exam: Clear to Ausculation Bilateral, NORMAL BREATHING PATTERN. absent: Accessory Muscle Use, Chest Wall Tenderness, Decreased Breath Sounds, Rales, Rhonchi, Wheezes, Respiratory Distress - Cardiovascular Exam Cardiovascular Exam: Tachycardia, REGULAR RHYTHM, RRR, +S1, +S2. absent: Gallop - GI/Abdominal Exam GI & Abdominal Exam: Soft, Normal Bowel Sounds. absent: Distended, Tenderness - Neurological Exam Neurological Exam: Alert, Awake - Extremities Exam Extremities Exam: Normal Inspection. absent: Calf Tenderness, Pedal Edema Plan - Assessment of Findings&Treatment Plan Recurrent SVT -prior to TECHNOLOGY STRATEGIST patient received 5 mg of Lopressor ordered by Cardiology -EKG stat showed SVT -Lopressor 5 mg IV ordered and given at 1:10 pm during TECHNOLOGY STRATEGIST -HR came down to 130s after Lopressor 5 mg IV once -Patient will be transferred to ICU unit for close monitoring as per Cardiology request, Dr. Jennings Case discussed with TECHNOLOGY STRATEGIST leader Dr. Fong
--- NOTE | 2018-03-15 13:44 | CP.PCM.PN ---
Subjective - Date & Time of Evaluation Date of Evaluation: 03/15/18 Time of Evaluation: 13:00 - Subjective Subjective: patient developed recurrent SVT. mild chest pain with a heart rate of 180. not responsive to carotid massage, valsalva or lopressor 5 IV Objective - Vital Signs/Intake and Output Vital Signs (last 24 hours): Temp Pulse Resp BP Pulse Ox 98.6 F 83 18 147/76 98 03/15/18 12:30 03/15/18 12:30 03/15/18 12:30 03/15/18 12:30 03/15/18 12:30 - Medications Medications: Current Medications Amantadine HCl (Amantadine 100 Mg Cap) 100 mg PO DAILY [facility] Last Admin: 03/15/18 08:22 Dose: 100 mg Amlodipine Besylate (Norvasc) 2.5 mg PO BID [facility] Last Admin: 03/15/18 08:23 Dose: 2.5 mg Aspirin (Ecotrin) 81 mg PO DAILY [facility] Last Admin: 03/15/18 08:22 Dose: 81 mg Carbidopa/Levodopa (Sinemet Cr) 1 tab PO QID [facility] Last Admin: 03/15/18 12:35 Dose: 1 tab Clonazepam (Klonopin) 0.5 mg PO DAILY [facility] Last Admin: 03/15/18 08:27 Dose: 0.5 mg Clopidogrel Bisulfate (Plavix) 75 mg PO DAILY [facility] Last Admin: 03/15/18 08:23 Dose: 75 mg Home Med (Rotigotine [Neupro]) 1 patch TD DAILY [facility] Last Admin: 03/15/18 09:42 Dose: 1 patch Hydrochlorothiazide (Hydrodiuril) 25 mg PO DAILY [facility] Last Admin: 03/15/18 08:22 Dose: 25 mg Sodium Chloride (Sodium Chloride 0.9%) 1,000 mls @ 100 mls/hr IV .Q10H [facility] Last Admin: 03/14/18 17:31 Dose: 100 mls/hr Losartan Potassium (Cozaar) 100 mg PO DAILY [facility] Last Admin: 03/15/18 08:24 Dose: 100 mg - Labs Labs: 03/15/18 04:40 03/15/18 04:40 PT 10.8 Seconds (9.8-13.1) 03/14/18 00:50 INR 1.0 (0.9-1.2) 03/14/18 00:50 APTT 30.9 Seconds (25.6-37.1) 03/14/18 00:50 - Constitutional Appears: Non-toxic - Head Exam Head Exam: NORMAL INSPECTION - Eye Exam Eye Exam: Normal appearance - ENT Exam ENT Exam: Mucous Membranes Moist - Neck Exam Neck Exam: Full ROM - Respiratory Exam Respiratory Exam: NORMAL BREATHING PATTERN - Cardiovascular Exam Cardiovascular Exam: Tachycardia, REGULAR RHYTHM - GI/Abdominal Exam GI & Abdominal Exam: Normal Bowel Sounds - Rectal Exam Rectal Exam: Deferred - Extremities Exam Extremities Exam: absent: Pedal Edema - Back Exam Back Exam: NORMAL INSPECTION - Neurological Exam Neurological Exam: Alert - Psychiatric Exam Psychiatric exam: Normal Affect - Skin Skin Exam: Normal Color Assessment and Plan (1) SVT (supraventricular tachycardia) Assessment & Plan: givne recurrent DVT, will transfer to ICU. discussed with gio and wildlife and game protector, Status: Acute (2) NSTEMI (non-ST elevated myocardial infarction) Assessment & Plan: continue ASA. OK with neuro therefore will given lovenox. will require cardiac cath when rhythm stabilized. Status: Acute (3) Chest pain Status: Acute
[2018-03-15] MEDS ORDERED: Metoprolol 1 mg/ml Inj IVP STA (13:52)
[2018-03-15] MEDS: Sodium Chloride 0.9% 1,000 ML IV SCH (14:30)
--- NOTE | 2018-03-15 15:26 | CP.PCM.CON ---
History of Present Illness - History of Present Illness History of Present Illness: Rapid response was called on this pt in room 403 due to rapid HR, was in SVT, was seen by his dairy and food laboratory assistant, Dr. Curry and was given IV lopressor 5 mg twice one hour apart. With initial dose of 5 mg lopressor she converted to SR, only to have SVT an hour later with HR 150/m, but did respond to IV lopressors. No CP , NO SOB, BP did not drop much. She was transferred to [facility] where she was back in SVT with HT 145/m. I started her on cardizem infusion 10 mg IV , bolus was not given due to slightly low BP. In about 10 minutes she converted to SR and has been in SR since. Cardizem drip was DCed. Pt was admitted yesterday due to CP, slightly positive TNI. She also has left facial droop , which is not new. She has h/o rt carotid endarectomy and has left carotid stenosis. She has h/o parkinsonism, DM and HTN. MRI of brain was negative for any acute pathology,ischemic or hemorrhagic and CTA was c/w rt carotid stenosis. Review of Systems - Review of Systems Systems not reviewed;Unavailable: Unstable Vital Signs - Constitutional Constitutional: As Per HPI - Cardiovascular Cardiovascular: Chest Pain, Rapid Heart Rate - Respiratory Respiratory: As Per HPI - Gastrointestinal Gastrointestinal: As Per HPI - Genitourinary Genitourinary: As Per HPI Past Patient History - Past Medical History & Family History Past Medical History?: Yes - Past Social History Smoking Status: Never Smoked - CARDIAC Hx Hypercholesterolemia: Yes Hx Hypertension: Yes - PULMONARY Hx Respiratory Disorders: No - NEUROLOGICAL Hx Parkinson's Disease: Yes - HEENT Hx HEENT Problems: No - RENAL Hx Chronic Kidney Disease: No - ENDOCRINE/METABOLIC Hx Endocrine Disorders: No - HEMATOLOGICAL/ONCOLOGICAL Hx Blood Disorders: No - INTEGUMENTARY Hx Dermatological Problems: No - MUSCULOSKELETAL/RHEUMATOLOGICAL Hx Arthritis: Yes - GASTROINTESTINAL Hx Gastrointestinal Disorders: No - GENITOURINARY/GYNECOLOGICAL Hx Genitourinary Disorders: No - PSYCHIATRIC Hx Anxiety: Yes - SURGICAL HISTORY Hx Carotid Endarterectomy: Yes - ANESTHESIA Hx Anesthesia: Yes Hx Anesthesia Reactions: No Hx Malignant Hyperthermia: No Meds Allergies/Adverse Reactions: Allergies Allergy/AdvReac Type Severity Reaction Status Date / Time Penicillins Allergy SWELLING Verified 07/20/16 15:55 - Medications Medications: Current Medications Amantadine HCl (Amantadine 100 Mg Cap) 100 mg PO DAILY [facility] Last Admin: 03/15/18 08:22 Dose: 100 mg Aspirin (Ecotrin) 81 mg PO DAILY [facility] Last Admin: 03/15/18 08:22 Dose: 81 mg Carbidopa/Levodopa (Sinemet Cr) 1 tab PO QID [facility] Last Admin: 03/15/18 12:35 Dose: 1 tab Clonazepam (Klonopin) 0.5 mg PO DAILY [facility] Last Admin: 03/15/18 08:27 Dose: 0.5 mg Clopidogrel Bisulfate (Plavix) 75 mg PO DAILY [facility] Last Admin: 03/15/18 08:23 Dose: 75 mg Enoxaparin Sodium (Lovenox) 75 mg SC DAILY [facility] PRN Reason: Protocol Home Med (Rotigotine [Neupro]) 1 patch TD DAILY [facility] Last Admin: 03/15/18 09:42 Dose: 1 patch Hydrochlorothiazide (Hydrodiuril) 25 mg PO DAILY [facility] Last Admin: 03/15/18 08:22 Dose: 25 mg Sodium Chloride (Sodium Chloride 0.9%) 1,000 mls @ 100 mls/hr IV .Q10H [facility] Last Admin: 03/14/18 17:31 Dose: 100 mls/hr Diltiazem HCl 125 mg/ Sodium (Chloride) 125 mls @ 5 mls/hr IV .Q24H ONE; 5 MG/ HR PRN Reason: Protocol Stop: 03/16/18 14:06 Last Titration: 03/15/18 14:53 Dose: 0 mg/hr, 0 mls/hr Losartan Potassium (Cozaar) 100 mg PO DAILY [facility] Last Admin: 03/15/18 08:24 Dose: 100 mg Physical Exam - Head Exam Head Exam: ATRAUMATIC - Eye Exam Pupil Exam: PERRL - ENT Exam ENT Exam: Mucous Membranes Moist - Respiratory Exam Respiratory Exam: NORMAL BREATHING PATTERN - Cardiovascular Exam Cardiovascular Exam: Tachycardia - GI/Abdominal Exam GI & Abdominal Exam: Soft Results - Vital Signs Recent Vital Signs: Last Vital Signs Temp 98.3 F 03/15/18 13:20 Pulse 144 H 03/15/18 14:00 Resp 22 03/15/18 14:00 BP 108/72 03/15/18 14:00 Pulse Ox 98 06/03/18 14:00 - Labs Result Diagrams: 03/15/18 04:40 03/15/18 04:40 Labs: Laboratory Results - last 24 hr 03/14/18 03/15/18 03/15/18 00:50 04:40 04:40 WBC 6.7 RBC 4.58 Hgb 14.5 Hct 43.1 MCV 94.2 MCH 31.6 H MCHC 33.5 RDW 12.9 Plt Count 202 MPV 9.1 Neut % (Auto) 60.6 Lymph % (Auto) 29.4 [place] % (Auto) 7.3 Eos % (Auto) 2.0 Baso % (Auto) 0.7 Neut # (Auto) 4.1 Lymph # (Auto) 2.0 [place] # (Auto) 0.5 Eos # (Auto) 0.1 Baso # (Auto) 0.0 Sodium 143 Potassium 3.8 Chloride 110 H Carbon Dioxide 20 L Anion Gap 17 BUN 13 Creatinine 0.6 L Est GFR ( Amer) > 60 Est GFR (Non-Af Amer) > 60 Random Glucose 103 Hemoglobin A1c 5.8 Calcium 9.1 Total Bilirubin 0.8 AST 22 ALT 18 Alkaline Phosphatase 91 Total Protein 7.1 Albumin 3.9 Globulin 3.2 Albumin/Globulin Ratio 1.2 Triglycerides 76 D Cholesterol 200 H LDL Cholesterol Direct 120 HDL Cholesterol 47 Assessment & Plan - Assessment and Plan (Free Text) Assessment: Arrhythmias: SVT, recurrent, ACS: NSTEMI Rt carotic artery stenosis h/oHTN Pakisonism DVT Plan: Transferred to ICU Metoprol 25 mg po bid Pt was givem cardizem drip for a very short period On Lovenox, Rx dose 75 mg s/q daily continue other med Cardiology following Card cath to be scheduled. Parkinsonism Neurology consult.
[2018-03-15] MEDS: Enoxaparin 80 mg Syringe SC SCH (15:40)
[2018-03-15 17:43] LABS: RAPID PLASMA REAGIN REACTIVE (NONREACTIVE)
[2018-03-16 05:32] LABS: BASO # 0.1 K/uL (0.0-0.2); BASO % 0.5 % (0.0-2.0); EOS # 0.1 K/uL (0.0-0.7); EOS % 0.7 % (0.0-4.0); HEMOGLOBIN 14.9 g/dL (12.0-16.0); LYMPH # 1.3 K/uL (1.0-4.3); LYMPH % 13.3 % (20.0-40.0); MEAN CELL VOLUME 93.8 fl (81.0-99.0); MEAN CORPUSCULAR HEMOGLOBIN 32.3 pg (27.0-31.0); MEAN CORPUSCULAR HGB CONC 34.4 g/dL (33.0-37.0); MEAN PLATELET VOLUME 8.6 fl (7.2-11.7); MONO # 0.4 K/uL (0.0-0.8); MONO % 3.9 % (0.0-10.0); NEUT # 7.7 K/uL (1.8-7.0); NEUT % 81.6 % (50.0-75.0); NRBC % 0.1 % (0.0-0.0); RBC 4.61 Mil/uL (3.80-5.20); WHITE BLOOD COUNT 9.5 K/uL (4.8-10.8)
[2018-03-16 05:37] LABS: PROTHROMBIN TIME 11.1 Seconds (9.8-13.1)
[2018-03-16 05:38] LABS: PARTIAL THROMBOPLASTIN TIME 32.7 Seconds (25.6-37.1)
[2018-03-16 05:50] LABS: ALB/GLOB RATIO 1.1 (1.0-2.1); ALBUMIN 3.9 g/dL (3.5-5.0); ALT/SGPT 14 U/L (9-52); AST/SGOT 26 U/L (14-36); BLOOD UREA NITROGEN 13 mg/dl (7-17); CALCIUM 9.3 mg/dL (8.4-10.2); GFR AFRICAN-AMERICAN > 60; GFR NON-AFRICAN AMERICAN > 60
--- NOTE | 2018-03-16 08:05 | CP.PCM.PN ---
Subjective - Date & Time of Evaluation Date of Evaluation: 03/16/18 Time of Evaluation: 08:02 - Subjective Subjective: pt moved to ICU for persistent SVt no f/c, n/v/d. had confusion overnight and is on 1:1 all labs and consults appriciated. pt on cardizem gtt. for possible cath Objective - Vital Signs/Intake and Output Vital Signs (last 24 hours): Temp Pulse Resp BP Pulse Ox 98.1 F 78 21 111/92 H 97 03/16/18 04:00 03/16/18 04:00 03/16/18 04:00 03/16/18 04:00 03/16/18 04:00 Intake and Output: 03/16/18 03/16/18 06:59 18:59 Intake Total 900 Balance 900 - Medications Medications: Current Medications Amantadine HCl (Amantadine 100 Mg Cap) 100 mg PO DAILY [facility] Last Admin: 03/15/18 08:22 Dose: 100 mg Aspirin (Ecotrin) 81 mg PO DAILY [facility] Last Admin: 03/15/18 08:22 Dose: 81 mg Carbidopa/Levodopa (Sinemet Cr) 1 tab PO QID [facility] Last Admin: 03/15/18 21:00 Dose: 1 tab Clonazepam (Klonopin) 0.5 mg PO DAILY [facility] Last Admin: 03/15/18 08:27 Dose: 0.5 mg Clopidogrel Bisulfate (Plavix) 75 mg PO DAILY [facility] Last Admin: 03/15/18 08:23 Dose: 75 mg Enoxaparin Sodium (Lovenox) 75 mg SC DAILY [facility] PRN Reason: Protocol Last Admin: 03/15/18 15:40 Dose: 75 mg Home Med (Rotigotine [Neupro]) 1 patch TD DAILY [facility] Last Admin: 03/15/18 09:42 Dose: 1 patch Hydrochlorothiazide (Hydrodiuril) 25 mg PO DAILY [facility] Last Admin: 03/15/18 08:22 Dose: 25 mg Sodium Chloride (Sodium Chloride 0.9%) 1,000 mls @ 100 mls/hr IV .Q10H [facility] Last Admin: 03/15/18 14:30 Dose: 100 mls/hr Losartan Potassium (Cozaar) 100 mg PO DAILY [facility] Last Admin: 03/15/18 08:24 Dose: 100 mg Metoprolol Tartrate (Lopressor) 25 mg PO Q12 [facility] Last Admin: 03/15/18 21:00 Dose: 25 mg - Labs Labs: 03/16/18 04:20 03/16/18 04:20 PT 11.1 Seconds (9.8-13.1) 03/16/18 04:20 INR 1.0 (0.9-1.2) 03/16/18 04:20 APTT 32.7 Seconds (25.6-37.1) 03/16/18 04:20 - Constitutional Appears: No Acute Distress, Confused, Chronically Ill - Head Exam Head Exam: ATRAUMATIC, NORMAL INSPECTION, NORMOCEPHALIC - Eye Exam Eye Exam: EOMI, Normal appearance, PERRL Pupil Exam: NORMAL ACCOMODATION, PERRL - ENT Exam ENT Exam: Mucous Membranes Moist, Normal Exam - Neck Exam Neck Exam: Full ROM, Normal Inspection. absent: Lymphadenopathy - Respiratory Exam Respiratory Exam: Clear to Ausculation Bilateral, NORMAL BREATHING PATTERN - Cardiovascular Exam Cardiovascular Exam: REGULAR RHYTHM, RRR, +S1, +S2. absent: Murmur - GI/Abdominal Exam GI & Abdominal Exam: Soft, Normal Bowel Sounds. absent: Tenderness - Extremities Exam Extremities Exam: Full ROM, Normal Capillary Refill, Normal Inspection. absent : Joint Swelling, Pedal Edema - Back Exam Back Exam: NORMAL INSPECTION - Neurological Exam Neurological Exam: Abnormal Gait, Alert, Altered, Awake, CN II-XII Intact - Psychiatric Exam Psychiatric exam: Normal Affect, Normal Mood - Skin Skin Exam: Dry, Intact, Normal Color, Warm Assessment and Plan (1) DVT prophylaxis Status: Acute (2) Chest pain Status: Acute (3) Facial droop Status: Acute - Assessment and Plan (Free Text) Assessment: (1) DVT prophylaxis Assessment and Plan: scd and ae hose asa. lovenox Status: Acute (2) Chest pain Assessment and Plan: trops, asa echo plavix added, likely for cath cardio to follow lovenox Status: Acute (3) Facial droop Assessment and Plan: ct head/cta head/neck noted. mri brain noted carotid dopplar noted neuro consult-case d/c w/ dr hernández. 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 will follow w/ dr hernández for possible intervention-no intervention as per dr hernández Status: Acute [id number] gtt, icu care, cardio
[2018-03-16] MEDS: Enoxaparin 80 mg Syringe SC SCH (08:57)
[2018-03-16] MEDS: Carbidopa/Levodopa 25/100 CR PO SCH ×4 (08:59→21:07)
[2018-03-16] MEDS: ROTIGOTINE TD SCH (09:01)
--- NOTE | 2018-03-16 09:38 | PQF GENQUE ---
Maggie Razo NP, [employer] Associate documented the following information with no mention of this diagnosis in your documentation. Please indicate in your next progress note your agreement with sales support consultant or provide clarification that this diagnosis is not a current condition. Diagnosis: NSTEMI Documented by: Cardiology Location: 03/14 Consult and progress notes troponin:0.0190->0.2820-> 0.1960 This form is a permanent part of the medical record Clarification of your documentation is requested to better reflect the severity of illness and intensity of treatment of your patient. Indicators present [] Specify: [] [] Specify: [] [] Specify: [] [] Specify: [] Location in the medical record that reflects the above clinical findings: [] Treatment Provided: [] PHYSICIAN'S RESPONSE Based on your medical judgment of the clinical indicators outlined above please clarify the following: [] Practitioner response NSTEMI [] If unable to determine, please check the box, sign and date. Present On Admission (POA) Indicator: [x] Present at the time of admission [] Not present at the time of admission [] Clinically Undetermined In responding to this query, please exercise your independent professional judgment. The fact that a question is asked does not imply that any particular answer is desired or expected. Thank you for your clarification on this documentation. If you have any questions please call. * Thank you, Suzanne Torres RN ext. #[phone] MTDD
--- NOTE | 2018-03-16 15:00 | CP.CCUPN ---
CCU Subjective - Physician Review Events Since Last Encounter (Free Text): 03/16/18 17:10 The patient was Seen/interviewed and examined by me at the bedside, Medical records reviewed and Management issues were discussed and formulated with the house staff. Events reviewed 77 Years old Female with PMHx of HTN, DM, Hypercholesterolemia, Anxiety, Arthritis and Parkinson's Disease Pt has rt carotid endarectomy and has left carotid stenosis. She also has left facial droop, which is not new, MRI of brain was negative for any acute pathology, ischemic or hemorrhagic and CTA was c/w rt carotid stenosis. . Pt was admitted 03/14 due to CP, L arm pain, and possible facial droop Found to have slightly positive TNI. [employer] was called on this pt yesterday due to rapid HR, was in SVT, was given IV lopressor 5 mg twice one hour apart, started on Cardiazem drip and transferred to ICU, In about 10 minutes she converted to SR and has been in SR since. She underwent cardiac Cath, returned in NSR Pt Alert, confused, follows some commands Denies any chest pain, SOB or Palpitations Afebrile, NSR on the monitor CCU Objective - Vital Signs / Intake & Output Intake and Output (Last 8hrs): Intake & Output 03/16/18 03/16/18 03/16/18 06:59 14:59 22:59 Intake Total 600 400 Balance 600 400 Intake: IV 600 400 Other: # Voids Urine, Voided 1 - Physical Exam Head: Positive for: Atraumatic, Normocephalic Pupils: Positive for: PERRL Extroacular Muscles: Positive for: EOMI Conjunctiva: Positive for: Normal Mouth: Positive for: Moist Mucous Membranes Neck: Positive for: Normal Range of Motion, Trachea Midline. Negative for: Meningeal Signs, MIDLINE TENDERNESS, Paraspinal Tenderness, JVD, Lymphadenopathy , Bruit, Other Respiratory/Chest: Positive for: Clear to Auscultation, Good Air Exchange. Negative for: Respiratory Distress, Accessory Muscle Use, Wheezes, Decreased Breath Sounds, Rales, Retracting, Rhonchi, Tender to Palpation Cardiovascular: Positive for: Regular Rate and Rhythm, Normal S1, S2 Abdomen: Positive for: Normal Bowel Sounds. Negative for: Tenderness, Distention, Peritoneal Signs Upper Extremity: Positive for: Normal Inspection, NORMAL PULSES, Capillary Refill < 2s. Negative for: Cyanosis, Edema Lower Extremity: Positive for: Normal Inspection, NORMAL PULSES, Capillary Refill < 2 s. Negative for: Edema, CALF TENDERNESS - Medications Active Medications: Active Medications Generic Name Dose Route Start Last Admin Trade Name Freq PRN Reason Stop Dose Admin Acyclovir 800 mg 03/16/18 10:00 Zovirax PO TID [facility] Protocol Amantadine HCl 100 mg 03/14/18 09:00 03/16/18 08:56 Amantadine 100 Mg Cap PO Not Given DAILY [facility] Aspirin 81 mg 03/14/18 09:00 03/16/18 08:57 Ecotrin PO Not Given DAILY [facility] Carbidopa/Levodopa 1 tab 03/14/18 09:00 03/16/18 08:59 Sinemet Cr PO 1 tab QID [facility] Administration Clonazepam 0.5 mg 03/14/18 09:00 03/16/18 09:02 Klonopin PO Not Given DAILY [facility] Clopidogrel Bisulfate 75 mg 03/14/18 12:45 03/16/18 08:58 Plavix PO Not Given DAILY [facility] Enoxaparin Sodium 75 mg 03/15/18 14:00 03/16/18 08:57 Lovenox SC Not Given DAILY [facility] Protocol Home Med 1 patch 03/14/18 09:00 03/16/18 09:01 Rotigotine [Neupro] TD 1 patch DAILY [facility] Administration Hydrochlorothiazide 25 mg 03/14/18 09:00 03/16/18 09:00 Hydrodiuril PO 25 mg DAILY [facility] Administration Sodium Chloride 1,000 mls @ 100 mls/hr 03/14/18 00:45 03/15/18 14:30 Sodium Chloride 0.9% IV 100 mls/hr .Q10H [facility] Administration Losartan Potassium 100 mg 03/14/18 09:00 03/16/18 09:00 Cozaar PO 100 mg DAILY [facility] Administration Metoprolol Tartrate 25 mg 03/15/18 21:00 03/15/18 21:00 Lopressor PO 25 mg Q12 [facility] Administration Prednisone 60 mg 03/16/18 10:00 Prednisone Tab PO DAILY [facility] - Patient Studies Lab Studies: Lab Studies 03/16/18 03/16/18 03/16/18 Range/Units 04:20 04:20 04:20 WBC 9.5 (4.8-10.8) K/uL RBC 4.61 (3.80-5.20) Mil/uL Hgb 14.9 (12.0-16.0) g/dL Hct 43.3 (34.0-47.0) % MCV 93.8 (81.0-99.0) fl MCH 32.3 H (27.0-31.0) pg MCHC 34.4 (33.0-37.0) g/dL RDW 13.0 (11.5-14.5) % Plt Count 198 (130-400) K/uL MPV 8.6 (7.2-11.7) fl Neut % (Auto) 81.6 H (50.0-75.0) % Lymph % (Auto) 13.3 L (20.0-40.0) % [place] % (Auto) 3.9 (0.0-10.0) % Eos % (Auto) 0.7 (0.0-4.0) % Baso % (Auto) 0.5 (0.0-2.0) % Neut # (Auto) 7.7 H (1.8-7.0) K/uL Lymph # (Auto) 1.3 (1.0-4.3) K/uL [place] # (Auto) 0.4 (0.0-0.8) K/uL Eos # (Auto) 0.1 (0.0-0.7) K/uL Baso # (Auto) 0.1 (0.0-0.2) K/uL PT 11.1 (9.8-13.1) Seconds INR 1.0 (0.9-1.2) APTT 32.7 (25.6-37.1) Seconds Sodium 143 (132-148) mmol/l Potassium 3.7 (3.6-5.0) MMOL/L Chloride 110 H (98-107) mmol/L Carbon Dioxide 19 L (22-30) mmol/L Anion Gap 18 (10-20) BUN 13 (7-17) mg/dl Creatinine 0.6 L (0.7-1.2) mg/dl Est GFR ( Amer) > 60 Est GFR (Non-Af Amer) > 60 Random Glucose 114 H (65-105) mg/dL Calcium 9.3 (8.4-10.2) mg/dL Total Bilirubin 0.7 (0.2-1.3) mg/dl AST 26 (14-36) U/L ALT 14 (9-52) U/L Alkaline Phosphatase 92 (38-126) U/L Total Protein 7.4 (6.3-8.2) G/DL Albumin 3.9 (3.5-5.0) g/dL Globulin 3.5 (2.2-3.9) gm/dL Albumin/Globulin Ratio 1.1 (1.0-2.1) RPR Titer (NONREACTIVE) RPR (NONREACTIVE) 03/15/18 Range/Units 09:55 WBC (4.8-10.8) K/uL RBC (3.80-5.20) Mil/uL Hgb (12.0-16.0) g/dL Hct (34.0-47.0) % MCV (81.0-99.0) fl MCH (27.0-31.0) pg MCHC (33.0-37.0) g/dL RDW (11.5-14.5) % Plt Count (130-400) K/uL MPV (7.2-11.7) fl Neut % (Auto) (50.0-75.0) % Lymph % (Auto) (20.0-40.0) % [place] % (Auto) (0.0-10.0) % Eos % (Auto) (0.0-4.0) % Baso % (Auto) (0.0-2.0) % Neut # (Auto) (1.8-7.0) K/uL Lymph # (Auto) (1.0-4.3) K/uL [place] # (Auto) (0.0-0.8) K/uL Eos # (Auto) (0.0-0.7) K/uL Baso # (Auto) (0.0-0.2) K/uL PT (9.8-13.1) Seconds INR (0.9-1.2) APTT (25.6-37.1) Seconds Sodium (132-148) mmol/l Potassium (3.6-5.0) MMOL/L Chloride (98-107) mmol/L Carbon Dioxide (22-30) mmol/L Anion Gap (10-20) BUN (7-17) mg/dl Creatinine (0.7-1.2) mg/dl Est GFR ( Amer) Est GFR (Non-Af Amer) Random Glucose (65-105) mg/dL Calcium (8.4-10.2) mg/dL Total Bilirubin (0.2-1.3) mg/dl AST (14-36) U/L ALT (9-52) U/L Alkaline Phosphatase (38-126) U/L Total Protein (6.3-8.2) G/DL Albumin (3.5-5.0) g/dL Globulin (2.2-3.9) gm/dL Albumin/Globulin Ratio (1.0-2.1) RPR Titer 1:1 (NONREACTIVE) RPR Reactive H (NONREACTIVE) Laboratory Results - last 24 hr 03/15/18 03/16/18 03/16/18 09:55 04:20 04:20 WBC 9.5 RBC 4.61 Hgb 14.9 Hct 43.3 MCV 93.8 MCH 32.3 H MCHC 34.4 RDW 13.0 Plt Count 198 MPV 8.6 Neut % (Auto) 81.6 H Lymph % (Auto) 13.3 L [place] % (Auto) 3.9 Eos % (Auto) 0.7 Baso % (Auto) 0.5 Neut # (Auto) 7.7 H Lymph # (Auto) 1.3 [place] # (Auto) 0.4 Eos # (Auto) 0.1 Baso # (Auto) 0.1 PT 11.1 INR 1.0 APTT 32.7 Sodium Potassium Chloride Carbon Dioxide Anion Gap BUN Creatinine Est GFR ( Amer) Est GFR (Non-Af Amer) Random Glucose Calcium Total Bilirubin AST ALT Alkaline Phosphatase Total Protein Albumin Globulin Albumin/Globulin Ratio RPR Titer 1:1 RPR Reactive H 03/16/18 04:20 WBC RBC Hgb Hct MCV MCH MCHC RDW Plt Count MPV Neut % (Auto) Lymph % (Auto) [place] % (Auto) Eos % (Auto) Baso % (Auto) Neut # (Auto) Lymph # (Auto) [place] # (Auto) Eos # (Auto) Baso # (Auto) PT INR APTT Sodium 143 Potassium 3.7 Chloride 110 H Carbon Dioxide 19 L Anion Gap 18 BUN 13 Creatinine 0.6 L Est GFR ( Amer) > 60 Est GFR (Non-Af Amer) > 60 Random Glucose 114 H Calcium 9.3 Total Bilirubin 0.7 AST 26 ALT 14 Alkaline Phosphatase 92 Total Protein 7.4 Albumin 3.9 Globulin 3.5 Albumin/Globulin Ratio 1.1 RPR Titer RPR Fingerstick Blood Sugar Results: 168 Critical Care Progress Note - Extremities/Vascular Does the Patient have a Central Venous Catheter?: No Does the Patient need a Central Venous Catheter?: No Does the Patient have a Robison Catheter?: No Does the Patient need a Robison Catheter?: No - Nutrition Nutrition: Nutrition Category Date Time Status Heart Healthy Diet [DIET] Diets 03/14/18 Breakfast Active Assessment/Plan (1) NSTEMI (non-ST elevated myocardial infarction) Current Visit: Yes Status: Acute (2) SVT (supraventricular tachycardia) Current Visit: Yes Status: Acute (3) Facial droop Current Visit: Yes Status: Acute (4) DVT prophylaxis Current Visit: Yes Status: Acute - Assessment and Plan (Free Text) Assessment: Continue with ICU care for hemodynamic and cardiac monitoring. Continue ASA, Plavix, statins and Metoprolol Tartrate lovenox. Started on Acyclovir by neurology Home medications with Amantadine, Rotigotine [Neupro] and Carbidopa/Levodopa Further work as per cardiology, based on the C Cath results.
[2018-03-16] MEDS ORDERED: Metoprolol 1 mg/ml Inj IVP ONE ×2 (17:15→17:48)
--- NOTE | 2018-03-16 17:50 | CP.PCM.PN ---
Subjective - Date & Time of Evaluation Date of Evaluation: 03/16/18 Time of Evaluation: 17:45 - Subjective Subjective: cath films reviewed. 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 Normal left ventricular function. Recommend medical therapy. continue betablocker. if no further SVT can d/c tomorrow for outpatient management. Objective - Vital Signs/Intake and Output Vital Signs (last 24 hours): Temp Pulse Resp BP Pulse Ox 98.7 F 80 18 155/73 H 95 03/16/18 08:00 03/16/18 10:00 03/16/18 10:00 03/16/18 10:00 03/16/18 10:00 Intake and Output: 03/16/18 03/16/18 06:59 18:59 Intake Total 900 400 Balance 900 400 - Medications Medications: Current Medications Acyclovir (Zovirax) 800 mg PO TID [facility] PRN Reason: Protocol Last Admin: 03/16/18 17:28 Dose: 800 mg Amantadine HCl (Amantadine 100 Mg Cap) 100 mg PO DAILY [facility] Last Admin: 03/16/18 08:56 Dose: Not Given Aspirin (Ecotrin) 81 mg PO DAILY [facility] Last Admin: 03/16/18 08:57 Dose: Not Given Carbidopa/Levodopa (Sinemet Cr) 1 tab PO QID [facility] Last Admin: 03/16/18 17:28 Dose: 1 tab Clonazepam (Klonopin) 0.5 mg PO DAILY [facility] Last Admin: 03/16/18 09:02 Dose: Not Given Clopidogrel Bisulfate (Plavix) 75 mg PO DAILY [facility] Last Admin: 03/16/18 08:58 Dose: Not Given Enoxaparin Sodium (Lovenox) 75 mg SC DAILY [facility] PRN Reason: Protocol Last Admin: 03/16/18 08:57 Dose: Not Given Home Med (Rotigotine [Neupro]) 1 patch TD DAILY [facility] Last Admin: 03/16/18 09:01 Dose: 1 patch Hydrochlorothiazide (Hydrodiuril) 25 mg PO DAILY [facility] Last Admin: 03/16/18 09:00 Dose: 25 mg Sodium Chloride (Sodium Chloride 0.9%) 1,000 mls @ 100 mls/hr IV .Q10H [facility] Last Admin: 03/15/18 14:30 Dose: 100 mls/hr Losartan Potassium (Cozaar) 100 mg PO DAILY [facility] Last Admin: 03/16/18 09:00 Dose: 100 mg Metoprolol Tartrate (Lopressor) 25 mg PO Q12 [facility] Last Admin: 03/16/18 16:22 Dose: Not Given Prednisone (Prednisone Tab) 60 mg PO DAILY [facility] Last Admin: 03/16/18 17:28 Dose: 60 mg - Labs Labs: 03/16/18 04:20 03/16/18 04:20 PT 11.1 Seconds (9.8-13.1) 03/16/18 04:20 INR 1.0 (0.9-1.2) 03/16/18 04:20 APTT 32.7 Seconds (25.6-37.1) 03/16/18 04:20 Assessment and Plan (1) SVT (supraventricular tachycardia) Status: Acute (2) NSTEMI (non-ST elevated myocardial infarction) Status: Acute (3) Chest pain Status: Acute
[2018-03-16] MEDS ORDERED: Sodium Chloride 0.9% 250 ML IV SCH (18:00)
[2018-03-16] MEDS: Sodium Chloride 0.9% 1,000 ML IV SCH (22:20)
[2018-03-17 05:48] LABS: BASO % 0.1 % (0.0-2.0); HEMOGLOBIN 13.2 g/dL (12.0-16.0); LYMPH # 0.3 K/uL (1.0-4.3); LYMPH % 4.9 % (20.0-40.0); MEAN CELL VOLUME 93.9 fl (81.0-99.0); MEAN CORPUSCULAR HEMOGLOBIN 32.5 pg (27.0-31.0); MEAN CORPUSCULAR HGB CONC 34.6 g/dL (33.0-37.0); MEAN PLATELET VOLUME 9.2 fl (7.2-11.7); MONO # 0.2 K/uL (0.0-0.8); MONO % 2.2 % (0.0-10.0); NEUT # 6.5 K/uL (1.8-7.0); NEUT % 92.8 % (50.0-75.0); PLATELET COUNT 160 K/uL (130-400); RBC 4.06 Mil/uL (3.80-5.20); RED CELL DISTRIBUTION WIDTH 12.7 % (11.5-14.5)
[2018-03-17] MEDS ORDERED: Metoprolol 1 mg/ml Inj IVP STA (05:58)
[2018-03-17 06:12] LABS: ALB/GLOB RATIO 1.2 (1.0-2.1); ALBUMIN 3.8 g/dL (3.5-5.0); ALT/SGPT 16 U/L (9-52); AST/SGOT 22 U/L (14-36); BLOOD UREA NITROGEN 16 mg/dl (7-17); CALCIUM 9.1 mg/dL (8.4-10.2); GFR AFRICAN-AMERICAN > 60; GFR NON-AFRICAN AMERICAN > 60
[2018-03-17] MEDS: Sodium Chloride 0.9% 1,000 ML IV SCH (06:40)
--- NOTE | 2018-03-17 07:53 | CP.PCM.PN ---
Subjective - Date & Time of Evaluation Date of Evaluation: 03/17/18 Time of Evaluation: 07:51 - Subjective Subjective: pt w/o distress/compliants. nsr at this time but had 2x runs of svt overnight. case d/c w/ cardio who recommends dr kennedy for in patient EP consult. states will d/c case further w/ him. all bw noted. cath results d/c w/ dr gallegos. Objective - Vital Signs/Intake and Output Vital Signs (last 24 hours): Temp Pulse Resp BP Pulse Ox 97.9 F 77 16 130/76 100 03/17/18 04:00 03/17/18 07:30 03/17/18 07:30 03/17/18 07:30 03/17/18 07:30 Intake and Output: 03/17/18 03/17/18 06:59 18:59 Intake Total 1185 200 Output Total 150 Balance 1035 200 - Medications Medications: Current Medications Acyclovir (Zovirax) 800 mg PO TID [facility] PRN Reason: Protocol Last Admin: 03/16/18 17:28 Dose: 800 mg Amantadine HCl (Amantadine 100 Mg Cap) 100 mg PO DAILY [facility] Last Admin: 03/16/18 22:29 Dose: 100 mg Aspirin (Ecotrin) 81 mg PO DAILY [facility] Last Admin: 03/16/18 08:57 Dose: Not Given Carbidopa/Levodopa (Sinemet Cr) 1 tab PO QID [facility] Last Admin: 03/16/18 21:07 Dose: 1 tab Clonazepam (Klonopin) 0.5 mg PO DAILY [facility] Last Admin: 03/16/18 22:29 Dose: 0.5 mg Clopidogrel Bisulfate (Plavix) 75 mg PO DAILY [facility] Last Admin: 03/16/18 08:58 Dose: Not Given Enoxaparin Sodium (Lovenox) 75 mg SC DAILY [facility] PRN Reason: Protocol Last Admin: 03/16/18 08:57 Dose: Not Given Home Med (Rotigotine [Neupro]) 1 patch TD DAILY [facility] Last Admin: 03/16/18 09:01 Dose: 1 patch Hydrochlorothiazide (Hydrodiuril) 25 mg PO DAILY [facility] Last Admin: 03/16/18 09:00 Dose: 25 mg Sodium Chloride (Sodium Chloride 0.9%) 1,000 mls @ 100 mls/hr IV .Q10H [facility] Last Admin: 03/17/18 06:40 Dose: Not Given Sodium Chloride (Sodium Chloride 0.9%) 250 mls @ 999 mls/hr IV .Q16M [facility] Potassium Chloride (Potassium Chloride 10 Meq/100 Ml) 100 mls @ 100 mls/hr IV Q1 ONE Stop: 03/17/18 08:59 Potassium Chloride (Potassium Chloride 10 Meq/100 Ml) 100 mls @ 100 mls/hr IVPB Q1 [facility] Stop: 03/17/18 09:59 Losartan Potassium (Cozaar) 100 mg PO DAILY [facility] Last Admin: 03/16/18 09:00 Dose: 100 mg Metoprolol Tartrate (Lopressor) 25 mg PO Q12 [facility] Last Admin: 03/16/18 20:55 Dose: 25 mg Prednisone (Prednisone Tab) 60 mg PO DAILY [facility] Last Admin: 03/16/18 17:28 Dose: 60 mg - Labs Labs: 03/17/18 04:35 03/17/18 04:35 PT 11.1 Seconds (9.8-13.1) 03/16/18 04:20 INR 1.0 (0.9-1.2) 03/16/18 04:20 APTT 32.7 Seconds (25.6-37.1) 03/16/18 04:20 - Constitutional Appears: Well, Non-toxic, No Acute Distress, Chronically Ill - Head Exam Head Exam: ATRAUMATIC, NORMAL INSPECTION, NORMOCEPHALIC - Eye Exam Eye Exam: EOMI, Normal appearance, PERRL Pupil Exam: NORMAL ACCOMODATION, PERRL - ENT Exam ENT Exam: Mucous Membranes Moist, Normal Exam - Neck Exam Neck Exam: Full ROM, Normal Inspection. absent: Lymphadenopathy - Respiratory Exam Respiratory Exam: Clear to Ausculation Bilateral, NORMAL BREATHING PATTERN - Cardiovascular Exam Cardiovascular Exam: REGULAR RHYTHM, RRR, +S1, +S2. absent: Murmur - GI/Abdominal Exam GI & Abdominal Exam: Soft, Normal Bowel Sounds. absent: Tenderness - Extremities Exam Extremities Exam: Full ROM, Normal Capillary Refill, Normal Inspection. absent : Joint Swelling, Pedal Edema - Back Exam Back Exam: NORMAL INSPECTION - Neurological Exam Neurological Exam: Abnormal Gait, Alert, Awake, CN II-XII Intact - Psychiatric Exam Psychiatric exam: Normal Affect, Normal Mood - Skin Skin Exam: Dry, Intact, Normal Color, Warm Assessment and Plan (1) DVT prophylaxis Status: Acute (2) Chest pain Status: Acute (3) Facial droop Status: Acute - Assessment and Plan (Free Text) Assessment: (1) DVT prophylaxis Assessment and Plan: scd and ae hose asa. lovenox Status: Acute (2) Chest pain Assessment and Plan: trops, asa echo plavix added cardio to follow lovenox cath noted Status: Acute (3) Facial droop Assessment and Plan: ct head/cta head/neck noted. mri brain noted carotid dopplar noted neuro consult-case d/c w/ dr hernández. 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 will follow w/ dr hernández for possible intervention-no intervention as per dr hernández appears to be slightly improving Status: Acute [id number] gtt, icu care, cardio, EP consult, ?? ablasion/pacemaker
[2018-03-17] MEDS ORDERED: Potassium CL 10mEq/100ml 100 ML IV ONE (08:00)
[2018-03-17] MEDS: ROTIGOTINE TD SCH (08:24)
[2018-03-17] MEDS: Carbidopa/Levodopa 25/100 CR PO SCH ×4 (08:24→21:03)
[2018-03-17] MEDS: Enoxaparin 80 mg Syringe SC SCH (08:45)
[2018-03-17] MEDS: Potassium CL 10mEq/100ml 100 ML IVPB SCH ×2 (11:09→13:41)
[2018-03-17 11:39] LABS: LYMPHOCYTE 2 % (20-50); MONOCYTE 1 % (0-10); NEUTROPHIL 97 % (42-75); PLATELET ESTIMATE NORMAL (NORMAL); TOTAL CELLS COUNTED 100
--- NOTE | 2018-03-17 14:16 | PN ---
DATE: 03/17/2018 CRITICAL CARE PROGRESS NOTE LOCATION: The patient in ICU bed 430. TIME SPENT: 35 minutes. SUBJECTIVE: The patient was seen and evaluated at the bedside. Case was discussed in detail in ICU multidisciplinary a.m. rounds. A 77-year-old female with a history significant for diabetes, hypertension, hyperlipidemia, status post right carotid endarterectomy, left carotid artery stenosis, and Parkinson's disease, admitted with non-ST VA with chest pain and noted to have a left facial droop. Status post cardiac catheterization showing minimal coronary artery disease involving LAD, OM, and RCA. Overnight, the patient had recurrent SVT, requiring medications to control. Awaiting for EP evaluation for further management of recurrent SVT. This morning, alert, awake, follows command as appropriate. No distress noted. Denies any chest pain, palpitation. No abdominal pain or diarrhea or hematuria. Noted to have swelling at the groin at the site of previous cardiac catheterization on pressure applied by the ice pack. OBJECTIVE: VITAL SIGNS: Temperature 97.6, heart rate 84 and regular, blood pressure 149/73, respiratory rate 19, thoracoabdominal, saturation 100% oxygen 2 liters nasal cannula. Intake 2034, output not documented. Weight 112 pounds. HEAD, EYE, EAR, NOSE, THROAT: Pupils are reactive. Conjunctivae pink. Sclerae are white. Left lower motor neuron facial palsy. NECK: Trachea is central. CHEST: Bilateral breath sounds clear to auscultation. HEART: Rhythm regular. S1 and S2 normal in intensity. No S3, S4, gallop. No audible murmur. ABDOMEN: Bowel sounds are present. Soft. Liver and spleen are not palpable. Bladder is not distended. EXTREMITIES: No clubbing, cyanosis, or edema. NEUROLOGIC: Other than left facial involvement, no other cranial nerve involvement. No motor deficit. No sensory impairment. CURRENT MEDICATIONS: Zovirax 800 mg p.o. 3 times daily, amantadine 100 mg p.o. daily, Ecotrin 81 mg p.o. daily, carbidopa-levodopa 1 tablet four times a day, Klonopin 0.5 mg daily, Plavix 75 mg daily, Lovenox 75 mg subcu on hold, hydrochlorothiazide 25 mg p.o. daily, Cozaar 100 mg p.o. daily, Lopressor 25 mg p.o. every 12 hours, prednisone 60 mg p.o. daily, and sodium chloride at 100 mL/hour. LABORATORY DATA: WBC 7, hemoglobin 13.2, hematocrit 38.1, and platelet count of 116, neutrophils 92.8, lymphocytes 4.9, and monocytes 2.2. PT 11.1, INR 1, and PTT 32.7. SMA-7; sodium 139, potassium 3.2, chloride 106, CO2 22, BUN 16, creatinine 0.8, calcium 9.1, total bilirubin 0.7, AST 22, ALT 16, alkaline phosphatase 86, total protein 7.1, and albumin 3.8. Microbiology, none reported. Carotid artery ultrasound done on 03/14/2018 consistent with mild increased peak systolic velocity at the proximal right internal carotid artery and carotid bifurcation, suggestive of mild approximately 50% stenosis, moderate atherosclerotic disease noted bilaterally. Head CT, no acute abnormality is noted. IMPRESSION AND PLAN: 1. Neuro: Status post left facial droop, stable on acyclovir and prednisone. 2. Cardiac: Suspected non-ST myocardial infarction status post catheterization, minimal coronary artery disease. Hematoma at the site of arterial puncture on close monitor with pressure bandage applied. Hold Lovenox. 3. Pulmonary: No acute issues noted. 4. Hematology: Hemoglobin and hematocrit stable, normal platelet count. No coagulopathy noted. 5. Renal: Hypokalemia, potassium being supplemented. Rapid plasma reagin reactive. Lyme disease negative. We will discuss with primary regarding the treatment whether the patient had received treatment for positive serology in the past. 6. Continue deep venous thrombosis prophylaxis with sequential compression device. Ike Stahl MD
[2018-03-18] MEDS: Sodium Chloride 0.9% 1,000 ML IV SCH (01:40)
--- NOTE | 2018-03-18 05:31 | CON ---
INPATIENT ELECTROPHYSIOLOGY CONSULTATION DATE: 03/17/2018 REFERRING PHYSICIAN: Giancarlo Jennings MD REASON FOR EVALUATION: 1. Palpitation. 2. Supraventricular tachycardia. Thank you very much for this consult. HISTORY OF PRESENT ILLNESS: Ms. Mindy Flores is a very pleasant 77-year-old female with past medical history significant for hypertension, diabetes, Parkinson's disease, and carotid stenosis who initially presented with palpitations and chest discomfort on the day of admission, 03/14/2018. The patient appeared to be dyspneic at rest and there was also some facial asymmetry in the form of left-sided facial droop was noticed. The patient was seen in consultation by Dr. Giancarlo Jennings for initially a run of narrow complex tachycardia that was believe to be supraventricular tachycardia. The patient had a rapid response called in which the patient was found to have supraventricular tachycardia and heart rate in the 150s that initially did not respond to doses of IV Lopressor one-hour apart. The patient was then started on a Cardizem infusion and the patient had been hypotensive, therefore aggressive mannitol with IV Cardizem was discontinued. The patient was transferred to the ICU, and at this point does not appear to have any further episodes of incessant supraventricular tachycardia. The patient had been seen and evaluated for left facial droop. MRI was reportedly unremarkable. The patient does have a history right carotid endarterectomy and has left carotid stenosis. The patient has a history of parkinsonism, hypertension, and diabetes. REVIEW OF SYSTEMS: Pertinent positives from the history of present illness included chest pain and rapid heart rate. No cough, wheezes or sputum production or urinary complaints. The patient previously had been able to perform her activities of daily living as per her daughter, Nafisa who helps the care for her. PAST MEDICAL HISTORY: As mentioned previously hypercholesterolemia, hypertension, and aforementioned Parkinson's disease. No history of renal insufficiency. No bleeding or hematological disorders. No history of GI disorders. The patient does have anxiety. MEDICATIONS: Currently include acyclovir 800 mg p.o. t.i.d., amantadine 100 mg p.o. daily, aspirin 81 mg p.o. daily, carbidopa/levodopa 1 tablet p.o. four times a day, clonazepam 0.5 mg daily, Plavix 75 mg p.o. daily. On review of available telemetry strips, the patient does have narrow complex tachycardia, which does approximate complexes in sinus rhythm. It does appear to be terminal P waves at the end of the QRS, which may be consistent with A-V rodney reentrant tachycardia. Heart rate can reach up to 164 beats per minute. ASSESSMENT AND PLAN: 1. 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 Medical management with calcium-channel blockers and beta-blockers are problematic with relatively low blood pressure and at times bradycardic rhythms. I discussed this in detail with the patient's daughter, Nafisa who appears to have a full understanding of her mother's condition. 2. 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 Therapeutic options were then discussed in detail with the patient's managing medical cash poster, Dr. Giancarlo Jennings as well as the patient's daughter, Nafisa who appears to be one of the primary caretakers of this patient. At this point, I would recommend electrophysiology study and possible slow pathway modification if the patient does indeed have atrioventricular rodney reentrant tachycardia. The procedure was discussed in details. Risks, benefits, and alternatives were discussed in detail with the patient. The patient did undergo cardiac catheterization, which appeared to be without significant obstructive coronary disease. At this time, preparations have been taken in regards to transfer to [facility] tomorrow, 03/18/2018 for electrophysiology study and possible slow pathway modification. Risks and benefits were discussed. We discussed in detail with the patient's daughter who at this point along with the patient appears to be agreeable for the proposed procedure. Thank you for allowing me to participate in the care of your patient. Please do not hesitate to call if you have any questions in regards to her care. Zana Sigala MD
[2018-03-18 05:47] LABS: BASO % 0.1 % (0.0-2.0); EOS % 0.1 % (0.0-4.0); HEMOGLOBIN 12.2 g/dL (12.0-16.0); LYMPH # 0.9 K/uL (1.0-4.3); LYMPH % 7.1 % (20.0-40.0); MEAN CELL VOLUME 93.2 fl (81.0-99.0); MEAN CORPUSCULAR HEMOGLOBIN 31.7 pg (27.0-31.0); MONO % 7.6 % (0.0-10.0); NEUT # 11.3 K/uL (1.8-7.0); NEUT % 85.1 % (50.0-75.0); RBC 3.84 Mil/uL (3.80-5.20); WHITE BLOOD COUNT 13.2 K/uL (4.8-10.8)
[2018-03-18 06:00] LABS: CALCIUM 9.5 mg/dL (8.4-10.2)
[2018-03-18 06:01] LABS: ALB/GLOB RATIO 1.2 (1.0-2.1); ALBUMIN 3.7 g/dL (3.5-5.0)
[2018-03-18] MEDS ORDERED: Sodium Chloride 0.9% 1,000 ML IV SCH (06:30)
[2018-03-18] MEDS ORDERED: Potassium Chloride 20 mEq ER Tab PO ONE (06:44)
--- NOTE | 2018-03-18 07:10 | CP.PCM.PN ---
Subjective - Date & Time of Evaluation Date of Evaluation: 03/17/18 Time of Evaluation: 21:00 - Subjective Subjective: patient had an episode of SVT last pm. currently no chest pain or dyspnea. Objective - Vital Signs/Intake and Output Vital Signs (last 24 hours): Temp Pulse Resp BP Pulse Ox 98.5 F 76 16 169/80 H 100 03/18/18 04:00 03/18/18 06:00 03/18/18 06:00 03/18/18 06:00 03/18/18 06:00 Intake and Output: 03/18/18 03/18/18 06:59 18:59 Intake Total 1450 Output Total 250 Balance 1200 - Medications Medications: Current Medications Acyclovir (Zovirax) 800 mg PO TID [facility] PRN Reason: Protocol Last Admin: 03/17/18 16:11 Dose: 800 mg Amantadine HCl (Amantadine 100 Mg Cap) 100 mg PO DAILY [facility] Last Admin: 03/17/18 08:21 Dose: 100 mg Aspirin (Ecotrin) 81 mg PO DAILY [facility] Last Admin: 03/17/18 08:22 Dose: 81 mg Carbidopa/Levodopa (Sinemet Cr) 1 tab PO QID [facility] Last Admin: 03/17/18 21:03 Dose: 1 tab Clonazepam (Klonopin) 0.5 mg PO DAILY [facility] Last Admin: 03/17/18 08:28 Dose: 0.5 mg Clopidogrel Bisulfate (Plavix) 75 mg PO DAILY [facility] Last Admin: 03/17/18 08:23 Dose: 75 mg Enoxaparin Sodium (Lovenox) 75 mg SC DAILY [facility] PRN Reason: Protocol Last Admin: 03/17/18 08:45 Dose: Not Given Home Med (Rotigotine [Neupro]) 1 patch TD DAILY [facility] Last Admin: 03/17/18 08:24 Dose: 1 patch Hydrochlorothiazide (Hydrodiuril) 25 mg PO DAILY [facility] Last Admin: 03/17/18 08:22 Dose: 25 mg Sodium Chloride (Sodium Chloride 0.9%) 250 mls @ 999 mls/hr IV .Q16M [facility] Sodium Chloride (Sodium Chloride 0.9%) 1,000 mls @ 75 mls/hr IV .[id number] [facility] Stop: 03/19/18 06:23 Last Admin: 03/18/18 06:30 Dose: 75 mls/hr Losartan Potassium (Cozaar) 100 mg PO DAILY [facility] Last Admin: 03/17/18 08:22 Dose: 100 mg Metoprolol Tartrate (Lopressor) 25 mg PO Q12 [facility] Last Admin: 03/17/18 20:38 Dose: 25 mg Prednisone (Prednisone Tab) 60 mg PO DAILY [facility] Last Admin: 03/17/18 08:23 Dose: 60 mg - Labs Labs: 03/18/18 04:35 03/18/18 04:35 PT 11.1 Seconds (9.8-13.1) 03/16/18 04:20 INR 1.0 (0.9-1.2) 03/16/18 04:20 APTT 32.7 Seconds (25.6-37.1) 03/16/18 04:20 - Constitutional Appears: Non-toxic - Head Exam Head Exam: NORMAL INSPECTION - Eye Exam Eye Exam: Normal appearance - ENT Exam ENT Exam: Mucous Membranes Moist - Neck Exam Neck Exam: Full ROM - Respiratory Exam Respiratory Exam: NORMAL BREATHING PATTERN - Cardiovascular Exam Cardiovascular Exam: REGULAR RHYTHM - GI/Abdominal Exam GI & Abdominal Exam: Normal Bowel Sounds - Rectal Exam Rectal Exam: Deferred - Extremities Exam Extremities Exam: Full ROM - Back Exam Back Exam: NORMAL INSPECTION - Neurological Exam Neurological Exam: Alert, Oriented x3 - Psychiatric Exam Psychiatric exam: Normal Mood - Skin Skin Exam: Normal Color Assessment and Plan (1) SVT (supraventricular tachycardia) Assessment & Plan: recurrent. discussed with Dr Sigala. will require EP study and SVT ablation. scheduled for tomorrow at [facility]. Status: Acute (2) NSTEMI (non-ST elevated myocardial infarction) Assessment & Plan: small vessle CAD. medical tehrapy with antiplatelet therapy, statin. betablocker. Status: Acute
--- NOTE | 2018-03-18 08:04 | CP.PCM.PN ---
Subjective - Date & Time of Evaluation Date of Evaluation: 03/18/18 Time of Evaluation: 08:02 - Subjective Subjective: pt doing well. no distress. sleeping well. no agitation at present. nsr on monitor. all bw noted. wbc and cr elevated ?? prednisone reaction. no f/c, n/v/ d. no s/s infection Objective - Vital Signs/Intake and Output Vital Signs (last 24 hours): Temp Pulse Resp BP Pulse Ox 98.5 F 76 16 169/80 H 100 03/18/18 04:00 03/18/18 06:00 03/18/18 06:00 03/18/18 06:00 03/18/18 06:00 Intake and Output: 03/18/18 03/18/18 06:59 18:59 Intake Total 1450 Output Total 250 Balance 1200 - Medications Medications: Current Medications Acyclovir (Zovirax) 800 mg PO TID [facility] PRN Reason: Protocol Last Admin: 03/17/18 16:11 Dose: 800 mg Amantadine HCl (Amantadine 100 Mg Cap) 100 mg PO DAILY [facility] Last Admin: 03/17/18 08:21 Dose: 100 mg Aspirin (Ecotrin) 81 mg PO DAILY [facility] Last Admin: 03/17/18 08:22 Dose: 81 mg Carbidopa/Levodopa (Sinemet Cr) 1 tab PO QID [facility] Last Admin: 03/17/18 21:03 Dose: 1 tab Clonazepam (Klonopin) 0.5 mg PO DAILY [facility] Last Admin: 03/17/18 08:28 Dose: 0.5 mg Clopidogrel Bisulfate (Plavix) 75 mg PO DAILY [facility] Last Admin: 03/17/18 08:23 Dose: 75 mg Enoxaparin Sodium (Lovenox) 75 mg SC DAILY [facility] PRN Reason: Protocol Last Admin: 03/17/18 08:45 Dose: Not Given Home Med (Rotigotine [Neupro]) 1 patch TD DAILY [facility] Last Admin: 03/17/18 08:24 Dose: 1 patch Hydrochlorothiazide (Hydrodiuril) 25 mg PO DAILY [facility] Last Admin: 03/17/18 08:22 Dose: 25 mg Sodium Chloride (Sodium Chloride 0.9%) 250 mls @ 999 mls/hr IV .Q16M [facility] Sodium Chloride (Sodium Chloride 0.9%) 1,000 mls @ 75 mls/hr IV .[id number] [facility] Stop: 03/19/18 06:23 Last Admin: 03/18/18 06:30 Dose: 75 mls/hr Losartan Potassium (Cozaar) 100 mg PO DAILY [facility] Last Admin: 03/17/18 08:22 Dose: 100 mg Metoprolol Tartrate (Lopressor) 25 mg PO Q12 [facility] Last Admin: 03/17/18 20:38 Dose: 25 mg Prednisone (Prednisone Tab) 60 mg PO DAILY [facility] Last Admin: 03/17/18 08:23 Dose: 60 mg - Labs Labs: 03/18/18 04:35 03/18/18 04:35 PT 11.1 Seconds (9.8-13.1) 03/16/18 04:20 INR 1.0 (0.9-1.2) 03/16/18 04:20 APTT 32.7 Seconds (25.6-37.1) 03/16/18 04:20 - Constitutional Appears: Well, Non-toxic, No Acute Distress - Head Exam Head Exam: ATRAUMATIC, NORMAL INSPECTION, NORMOCEPHALIC - Eye Exam Eye Exam: EOMI, Normal appearance, PERRL Pupil Exam: NORMAL ACCOMODATION, PERRL - ENT Exam ENT Exam: Mucous Membranes Moist, Normal Exam - Neck Exam Neck Exam: Full ROM, Normal Inspection. absent: Lymphadenopathy - Respiratory Exam Respiratory Exam: Clear to Ausculation Bilateral, NORMAL BREATHING PATTERN - Cardiovascular Exam Cardiovascular Exam: REGULAR RHYTHM, RRR, +S1, +S2. absent: Murmur - GI/Abdominal Exam GI & Abdominal Exam: Soft, Normal Bowel Sounds. absent: Tenderness - Extremities Exam Extremities Exam: Full ROM, Normal Capillary Refill, Normal Inspection. absent : Joint Swelling, Pedal Edema - Back Exam Back Exam: NORMAL INSPECTION - Neurological Exam Neurological Exam: Abnormal Gait, Alert, Awake, CN II-XII Intact, Oriented x3 - Psychiatric Exam Psychiatric exam: Normal Affect, Normal Mood - Skin Skin Exam: Dry, Intact, Normal Color, Warm Assessment and Plan (1) DVT prophylaxis Status: Acute (2) Chest pain Status: Acute (3) Facial droop Status: Acute - Assessment and Plan (Free Text) Assessment: (1) DVT prophylaxis Assessment and Plan: scd and ae hose asa. lovenox Status: Acute (2) Chest pain Assessment and Plan: trops, asa echo plavix added cardio to follow lovenox cath noted Status: Acute (3) Facial droop Assessment and Plan: ct head/cta head/neck noted. mri brain noted carotid dopplar noted neuro consult-case d/c w/ dr hernández. 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 will follow w/ dr hernández for possible intervention-no intervention as per dr hernández appears to be slightly improving on prednisone-likely cause of elev wbc and cr. Status: Acute [id number] gtt, icu care, cardio, EP consult, for ablasion at [facility] today 5-elev wbc and cr-ivf ordered, will monitor. will d/c w/ neuro about steroid taper
[2018-03-18] MEDS: Carbidopa/Levodopa 25/100 CR PO SCH (08:21)
[2018-03-18 08:48] VITALS: TEMP 98.7
[2018-03-18] MEDS: Enoxaparin 80 mg Syringe SC SCH (08:48)
[2018-03-18] MEDS: ROTIGOTINE TD SCH (10:13)
[2018-03-18 12:41] VITALS: RESP 25
[2018-03-18] MEDS ORDERED: Metoprolol 1 mg/ml Inj IVP ONE ×3 (12:47→13:30)
[2018-03-18 13:19] VITALS: O2SAT 98
[2018-03-18 13:35] VITALS: BP 191/90; PULSE 74
--- NOTE | 2018-03-18 13:42 | CP.PCM.DIS ---
Provider - Provider Date of Admission: 03/14/18 01:37 Attending physician: Yumiko Joseph MD Time Spent in preparation of Discharge (in minutes): 20 Diagnosis - Discharge Diagnosis (1) DVT prophylaxis Status: Acute (2) Chest pain Status: Acute (3) Facial droop Status: Acute Hospital Course - Lab Results Lab Results: Micro Results 03/15/18 08:10 Naris MRSA Culture (Admit) - Final MRSA NOT DETECTED Most Recent Lab Values WBC 13.2 K/uL (4.8-10.8) H D 03/18/18 04:35 RBC 3.84 Mil/uL (3.80-5.20) 03/18/18 04:35 Hgb 12.2 g/dL (12.0-16.0) 03/18/18 04:35 Hct 35.8 % (34.0-47.0) 03/18/18 04:35 MCV 93.2 fl (81.0-99.0) 03/18/18 04:35 MCH 31.7 pg (27.0-31.0) H 03/18/18 04:35 MCHC 34.0 g/dL (33.0-37.0) 03/18/18 04:35 RDW 13.0 % (11.5-14.5) 03/18/18 04:35 Plt Count 168 K/uL (130-400) 03/18/18 04:35 MPV 9.0 fl (7.2-11.7) 03/18/18 04:35 Neut % (Auto) 85.1 % (50.0-75.0) H 03/18/18 04:35 Lymph % (Auto) 7.1 % (20.0-40.0) L 03/18/18 04:35 [place]isco[place] % (Auto) 7.6 % (0.0-10.0) 03/18/18 04:35 Eos % (Auto) 0.1 % (0.0-4.0) 03/18/18 04:35 Baso % (Auto) 0.1 % (0.0-2.0) 03/18/18 04:35 Neut # (Auto) 11.3 K/uL (1.8-7.0) H 03/18/18 04:35 Lymph # (Auto) 0.9 K/uL (1.0-4.3) L 03/18/18 04:35 [place]iscoe # (Auto) 1.0 K/uL (0.0-0.8) H 03/18/18 04:35 Eos # (Auto) 0.0 K/uL (0.0-0.7) 03/18/18 04:35 Baso # (Auto) 0.0 K/uL (0.0-0.2) 03/18/18 04:35 Neutrophils % (Manual) 97 % (42-75) H 03/17/18 04:35 Lymphocytes % (Manual) 2 % (20-50) L 03/17/18 04:35 Monocytes % (Manual) 1 % (0-10) 03/17/18 04:35 Platelet Estimate Normal (NORMAL) 03/17/18 04:35 RBC Morphology Normal (NORMAL) 03/17/18 04:35 PT 11.1 Seconds (9.8-13.1) 03/16/18 04:20 INR 1.0 (0.9-1.2) 03/16/18 04:20 APTT 32.7 Seconds (25.6-37.1) 03/16/18 04:20 Sodium 139 mmol/l (132-148) 03/18/18 04:35 Potassium 3.1 MMOL/L (3.6-5.0) L 03/18/18 04:35 Chloride 106 mmol/L (98-107) 03/18/18 04:35 Carbon Dioxide 22 mmol/L (22-30) 03/18/18 04:35 Anion Gap 14 (10-20) 03/18/18 04:35 BUN 33 mg/dl (7-17) H 03/18/18 04:35 Creatinine 1.4 mg/dl (0.7-1.2) H 03/18/18 04:35 Est GFR ( Amer) 44 03/18/18 04:35 Est GFR (Non-Af Amer) 37 03/18/18 04:35 POC Glucose (mg/dL) 185 mg/dL (65-110) H 03/18/18 11:21 Random Glucose 121 mg/dL (65-105) H 03/18/18 04:35 Hemoglobin A1c 5.8 % (4.2-6.5) 03/14/18 00:50 Calcium 9.5 mg/dL (8.4-10.2) 03/18/18 04:35 Total Bilirubin 0.6 mg/dl (0.2-1.3) 03/18/18 04:35 AST 24 U/L (14-36) 03/18/18 04:35 ALT 18 U/L (9-52) 03/18/18 04:35 Alkaline Phosphatase 85 U/L (38-126) 03/18/18 04:35 Troponin I 0.1960 ng/mL (0.00-0.120) H* 03/14/18 12:00 Total Protein 6.8 G/DL (6.3-8.2) 03/18/18 04:35 Albumin 3.7 g/dL (3.5-5.0) 03/18/18 04:35 Globulin 3.1 gm/dL (2.2-3.9) 03/18/18 04:35 Albumin/Globulin Ratio 1.2 (1.0-2.1) 03/18/18 04:35 Triglycerides 76 mg/DL (0-149) D 03/15/18 04:40 Cholesterol 200 mg/dL (0-199) H 03/15/18 04:40 LDL Cholesterol Direct 120 mg/dL (0-129) 03/15/18 04:40 HDL Cholesterol 47 MG/DL (30-70) 03/15/18 04:40 FRANKI Screen Negative (Negative) 03/15/18 09:55 RPR Titer 1:1 (NONREACTIVE) 03/15/18 09:55 RPR Reactive (NONREACTIVE) H 03/15/18 09:55 Lyme Disease Screen <0.90 index 03/15/18 09:55 HSV I IgG Ab 52.50 index H 03/15/18 09:55 HSV II IgG <0.90 index 03/15/18 09:55 Blood Type A POSITIVE 03/14/18 00:42 Antibody Screen Negative 03/14/18 00:42 BBK History Checked Patient has bt 03/14/18 00:42 - Hospital Course Hospital Course: cardio, EP, neuro steroids, cardiac cath xfer to [facility] for ablasion Discharge Exam - Head Exam Head Exam: ATRAUMATIC, NORMAL INSPECTION, NORMOCEPHALIC Discharge Plan - Follow Up Plan Condition: STABLE Disposition: Transfer [facility] Instructions: Chest Pain, Chest Pain That Is Not Caused by the Heart (DC), Chest Pain (DC) Additional Instructions: dc to [facility], rted prn,meds per med rec final dx-cad, svt-recurrent, thomas;'s palsy causing facial droop f/u rmg upon dc from [facility]
== END 2018-03-18 14:00 | disposition short-term general hospital (02) | DRG 281 ==
LOC: H.ER 00:35 → H.ERHOLD 01:37 → H.TEL 04:16 → H.ICU/CCU 03-15 13:16
PROVIDERS: ADMIT Family Medicine; ATTEND Family Medicine
PROC: B41FZZZ Fluoroscopy of Right Lower Extremity Arteries (ICD-10-PCS; principal; 2018-03-16)
PROC: 4A023N7 Measurement of Cardiac Sampling and Pressure, Left Heart, Percutaneous Approach (ICD-10-PCS; 2018-03-16)
PROC: B215YZZ Fluoroscopy of Left Heart using Other Contrast (ICD-10-PCS; 2018-03-16)
DX: I21.4 Non-ST elevation (NSTEMI) myocardial infarction (principal); I47.1 Supraventricular tachycardia; I25.10 Atherosclerotic heart disease of native coronary artery without angina pectoris; G51.0 Bell's palsy; I10 Essential (primary) hypertension; E11.9 Type 2 diabetes mellitus without complications; E78.00 Pure hypercholesterolemia, unspecified; F41.9 Anxiety disorder, unspecified; M19.90 Unspecified osteoarthritis, unspecified site; G20 Parkinson's disease; I65.22 Occlusion and stenosis of left carotid artery; E78.5 Hyperlipidemia, unspecified; E87.6 Hypokalemia; F02.80 Dementia in other diseases classified elsewhere, unspecified severity, without behavioral disturbance, psychotic disturbance, mood disturbance, and anxiety; Z88.0 Allergy status to penicillin